=== PATIENT | male | born 1960 | race Caucasian/White ===

== ENCOUNTER 2023-05-29 11:46 | Outpatient (REF) | payer OTHER, SELFPAY ==
--- NOTE | ~2023-05-29 | XR_ITS ---
EXAMINATION: XR SHOULDER, LEFT CLINICAL INFORMATION: Left shoulder pain for 6 months. COMPARISON: None available. TECHNIQUE: AP external rotation, Grashey, scapular Y, and axillary views of the left shoulder. FINDINGS: There is calcific tendinitis of the left shoulder. The glenohumeral joint appears unremarkable. No acute fracture or dislocation is seen. No widening of the coracoclavicular space is seen. There is mild degenerative spurring of the left acromioclavicular joint. XR/XR shoulder LT min 2V IMPRESSION: Calcific tendinitis of the left shoulder.
== END 2023-05-29 11:47 | disposition home or self-care (01) ==
LOC: HO.HHCX 11:46
PROVIDERS: Visit Provider Family Medicine
DX: M25.512 Pain in left shoulder (principal)
CPT/HCPCS: 73030

== ENCOUNTER 2023-05-29 12:16 | Outpatient (REF) | payer OTHER, SELFPAY ==
[2023-05-29 13:33] LABS: MANUAL DIFF FLAG NO
[2023-05-29 13:53] LABS: Basophils Absolute Auto 0.1 X10*3/uL (0.0-0.2); Eosinophils Absolute Auto 0.6 X10*3/uL (0.0-0.4); Eosinophils Percent Auto 5.9 % (0-4); Hematocrit 45.6 % (42.0-52.0); Hemoglobin 14.6 g/dl (14.0-18.0); Imm Gran Abs Auto 0.05 X10*3/uL (0.00-0.03); Imm Gran Pct Auto 0.5 % (0.0-0.4); Lymphocytes Absolute Auto 2.6 X10*3/uL (1.2-4.9); Lymphocytes Percent Auto 24.7 % (20-40); Mean Corpuscular Hemoglobin 29.6 pg (27.0-33.0); Mean Corpuscular Volume 92.5 fL (80.0-98.0); Mean Platelet Volume 11.3 fL (9.4-12.4); Monocytes Absolute Auto 0.7 X10*3/uL (0.1-1.2); Monocytes Percent Auto 6.5 % (2-11); Neutrophils Absolute Auto 6.4 x10*3/uL (2.0-8.3); Neutrophils Percent Auto 61.4 % (45-73); Platelet Count 223 X10*3/uL (160-400); Red Blood Count 4.93 X10*6/uL (4.60-5.80); Red Cell Distribution Width 12.3 % (11.0-16.0); White Blood Count 10.4 X10*3/uL (4.8-10.8)
[2023-05-29 14:33] LABS: Creatinine Urine 28.66 mg/dL; Microalbumin Urine < 5.0 mg/L
[2023-05-29 14:52] LABS: Estimated Average Glucose 140 mg/dL; Hemoglobin A1c % 6.5 %
[2023-05-29 15:03] LABS: Alanine Aminotransferase 15 U/L (0-40); Albumin Level 4.4 g/dL (3.5-5.0); Alkaline Phosphatase 71 U/L (39-117); Anion Gap 16 (12-20); Aspartate Amino Transferase 15 U/L (5-37); Bilirubin Direct 0.2 mg/dL (0.0-0.5); Bilirubin Total 0.5 mg/dL (0.0-1.0); Blood Urea Nitrogen 17 mg/dL (9-16); Calcium 9.9 mg/dL (8.4-10.2); Carbon Dioxide 27 mmol/L (22-29); Chloride 103 mmol/L (96-108); Cholesterol 120 mg/dL; Estimated Glomerular Filt Rate > 60; Free T4 (Free Thyroxine) 0.97 ng/dL (0.71-1.85); Glucose Random 95 mg/dL (60-115); HDL Cholesterol 45 mg/dL; LDL Cholesterol Calculated 58 mg/dl; Potassium 4.8 mmol/L (3.3-5.1); Sodium 141 mmol/L (135-145); Thyroid Stimulating Hormone 1.48 uIU/mL (0.32-4.0); Total Protein 7.3 g/dL (6.5-8.0); Triglycerides 86 mg/dL; Vitamin D 25-OH Total 24.6 ng/mL (>30)
== END 2023-05-29 12:17 | disposition home or self-care (01) ==
LOC: HO.HHCL 12:16
PROVIDERS: Visit Provider Family Medicine
DX: Z00.00 Encounter for general adult medical examination without abnormal findings (principal); E11.3293 Type 2 diabetes mellitus with mild nonproliferative diabetic retinopathy without macular edema, bilateral
CPT/HCPCS: 36415; 80048; 80061; 80076; 82043; 82306; 83036; 84439; 84443; 85025; 86787

== ENCOUNTER 2023-11-13 15:56 | Outpatient (REF) | payer OTHER, SELFPAY ==
--- NOTE | ~2023-11-13 | MR_ITS ---
EXAMINATION: MR BRAIN WITHOUT AND WITH CONTRAST CLINICAL INFORMATION: Bilateral tinnitus. COMPARISON: CT head from 08/27/2007. TECHNIQUE: Multiplanar, multisequence MRI of the brain was obtained using a skull base protocol without and following the administration of 7.5 mL of Gadavist intravenous contrast. FINDINGS: No focal restricted diffusion is demonstrated to suggest acute or subacute cerebral ischemia. No evidence of acute or chronic hemorrhagic products on heme-sensitive imaging. Scattered periventricular and deep white matter T2 FLAIR hyperintensities consistent with mild underlying microangiopathy. Proportional prominence of the ventricles and sulcal spaces without evidence of obstructive hydrocephalus. No abnormal mass effect. No midline shift. Normal appearance of the pituitary gland. Normal positioning of the cerebellar tonsils. No mass of the cerebellopontine angles. Normal appearance of the cranial nerve V, VII, and VIII nerve roots. No edema or vascular loops near the nerve root entry sites. Normal appearance of the internal auditory canals without enhancing mass lesions. No abnormal enhancement along the course of the facial nerves bilaterally. Normal appearance of the labyrinthine structures without loss of T2 signal or abnormal enhancement. Normal arterial and venous vascular flow voids are present. No abnormal intracranial contrast enhancement. Normal, homogeneous marrow signal. Mild mucosal thickening of the paranasal sinuses. No signal abnormalities within the mastoids. MR/MR head/brain wo/w con IMPRESSION: 1. No acute intracranial abnormalities. No abnormal intracranial enhancement. 2. Mild underlying microangiopathy and generalized cerebral volume loss. 3. No additional MRI abnormalities to explain the patient's symptoms.
== END 2023-11-13 15:57 | disposition home or self-care (01) ==
LOC: HO.MRI 15:56
PROVIDERS: PCP Family Medicine; Visit Provider Family Medicine
DX: H93.13 Tinnitus, bilateral (principal)
CPT/HCPCS: 70553; A9585

== ENCOUNTER 2024-07-23 08:07 | Outpatient (REF) | payer OTHER, SELFPAY ==
[2024-07-23 12:06] LABS: Hemoglobin 13.8 g/dl (14.0-18.0); Mean Corpuscular HGB Conc 32.9 g/dl (31.0-36.0); Mean Corpuscular Hemoglobin 30.3 pg (27.0-33.0); Mean Corpuscular Volume 92.1 fL (80.0-98.0); Platelet Count 246 X10*3/uL (160-400); Red Blood Count 4.56 X10*6/uL (4.60-5.80); Red Cell Distribution Width 12.3 % (11.0-16.0); White Blood Count 8.9 X10*3/uL (4.8-10.8)
[2024-07-23 12:09] LABS: Estimated Average Glucose 148 mg/dL; Hemoglobin A1c % 6.8 % (<6.0)
[2024-07-23 12:29] LABS: Alanine Aminotransferase 15 U/L (0-40); Albumin Level 4.3 g/dL (3.5-5.0); Alkaline Phosphatase 68 U/L (39-117); Anion Gap 13 (12-20); Aspartate Amino Transferase 14 U/L (5-37); Bilirubin Direct 0.2 mg/dL (0.0-0.5); Bilirubin Total 0.5 mg/dL (0.0-1.0); Blood Urea Nitrogen 17 mg/dL (9-16); Calcium 9.7 mg/dL (8.4-10.2); Carbon Dioxide 27 mmol/L (22-29); Chloride 104 mmol/L (96-108); Cholesterol 106 mg/dL (<200); Estimated Glomerular Filt Rate > 60; Glucose Random 117 mg/dL (60-115); HDL Cholesterol 44 mg/dL (>40); LDL Cholesterol Calculated 44 mg/dL (<100); Potassium 4.3 mmol/L (3.3-5.1); Sodium 140 mmol/L (135-145); Total Protein 7.1 g/dL (6.5-8.0); Triglycerides 91 mg/dL (<150)
[2024-07-23 12:44] LABS: Creatinine Urine 25.21 mg/dL; Microalbumin Urine < 5.0 mg/L
[2024-07-23 12:48] LABS: Free T4 (Free Thyroxine) 0.99 ng/dL (0.71-1.85); Thyroid Stimulating Hormone 1.38 uIU/mL (0.32-4.0); Vitamin D 25-OH Total 39.5 ng/mL (>30)
== END 2024-07-23 08:08 | disposition home or self-care (01) ==
LOC: HO.HHCL 08:07
PROVIDERS: Visit Provider Family Medicine
DX: I10 Essential (primary) hypertension (principal); E11.3293 Type 2 diabetes mellitus with mild nonproliferative diabetic retinopathy without macular edema, bilateral; E78.49 Other hyperlipidemia
CPT/HCPCS: 36415; 80048; 80061; 80076; 82043; 82306; 82570; 83036; 84439; 84443; 85027

== ENCOUNTER 2025-02-23 11:17 | Outpatient (REF) | payer OTHER, SELFPAY ==
--- NOTE | ~2025-02-23 | XR_ITS ---
EXAMINATION: XR TIBIA FIBULA 2 VIEWS LEFT HISTORY: mid andrew pain COMPARISON: Correlation is made with plain films of the left knee dated 05/21/2017. FINDINGS: AP and lateral views of the left tibia and fibula are submitted. Osseous mineralization is normal. There is no acute fracture or dislocation. There is an old healed fracture deformity of the distal femur. There is moderate tricompartmental osteoarthritis of the knee. The visualized ankle joint is maintained. The soft tissues are unremarkable. XR/XR tibia fibula LT 2V IMPRESSION: No evidence of fracture of the left tibia or fibula. Electronically signed by: Rene Gaines MD 02/23/2025 11:34 AM EDT
--- OUTSIDE RECORDS SUMMARY | 2025-02-23 13:38 | XMS_ITS | Encounter Summary ---
Author Organization [facility] Address [address] [place] [address] Care Team Providers Care Process Laboratory Specialist Name Role Phone JorgeMariya Primary Care Provider + [phone] Encounter Details Date Type Department Care Team (Late Contact Info) Description 02/26/2023 Abstract [facility] [address] [place] [address] Sy Avila DMD [address] [place] [address] Social History Tobacco Use Types Packs/Day Years Used Date Smoking Tobacco: Never Passive Smoke Exposure: Never Smokeless Tobacco: Never Alcohol Use Standard Drinks/Week Comments Never 0 (1 standard drink = 0.6 oz pur e alcohol) Depression Answer Date Recorded Patient Health Questionnaire-9 Score 0 01/29/2023 Depression Answer Date Recorded Patient Health Questionnaire-2 Score 0 01/29/2023 Sex and Gender Information Value Date Recorded Sex Assigned at Male 09/09/2022 10:18 AM EDT Legal Sex Male 10:18 AM EDT Gender Identity Male 09/09/2022 10:18 AM EDT Sexual Orientation Straight 09/09/2022 10 :18 AM EDT COVID-19 Exposure Response Date Recorded In the last 10 days, have yo u been in contact with someone who was confirmed or suspected to have Coronavirus/COVID-19? No / Unsure 02/13/2023 12:46 PM EDT documented as of this encounter Plan of Treatment Upcoming Encounters Date Type Department Care Team ([facility] Contact Info) Description 02/25/2025 1:00 PM EDT Office Visit [facility] [address] [place] [address] Cherelle Marrero, OD [address] [place] [address] documented as of this encounter Visit Diagnoses Not on filedocumented in this encounter Additional Health Concerns Assessment Noted Time PHQ-9 Depression Total Score: 0 01/30/20 23 9:09 AM EDT documented as of this encounter Care Teams Process Laboratory Specialist Relationship Specialty Start Date End Date Mariya Patel DO [address] [place] [address] PCP - General Family Medicine 04/21/20 documented as of this encounter
--- OUTSIDE RECORDS SUMMARY | 2025-02-23 13:38 | XMS_ITS | Encounter Summary ---
Author Organization [email or web address] Address [address] [facility] [address] [place] [address] Care Team Providers Care Process Laboratory Specialist Name Role Phone JorgeMariya Primary Care Provider + [phone] Encounter Details Date Type Department Care Team (Late Contact Info) Description 02/26/2023 Abstract [facility] [address] [place] [address] Sy Avila DMD [address] [place] [address] Social History Tobacco Use Types Packs/Day Years [...] Upcoming Encounters Date Type Department Care Team ([facility] Contact Info) Description 02/25/2025 1:00 PM EDT Office Visit [facility] [address] [place] [address] Cherelle Marrero, OD [address] [place] [address] documented as of this encounter Visit Diagnoses Not on filedocumented in this encounter Additional Health Concerns Assessment Noted Time PHQ-9 Depression Total Score: 0 01/30/20 23 9:09 AM EDT documented as of this encounter Care Teams Process Laboratory Specialist Relationship Specialty Start Date End Date Mariya Patel DO [address] [place] [address] PCP - General Family Medicine 04/21/20 documented as of this encounter
--- OUTSIDE RECORDS SUMMARY | 2025-02-23 13:38 | XMS_ITS | Encounter Summary ---
Author Organization [facility] Address [address] [facility] [address] [place] [address] Care Team Providers Care Rescue Worker Name Role Phone ChevyMariya spicer Primary Care Provider [phone] Encounter Details Date Type Department Care Team (Late st Contact Info) Description 12/27/[address] [facility] [address] [place] [address] Chepe De La Fuente DDS [address] [place] [address] Social History Tobacco Use Types Packs/Day Years Used Date Smoking Tobacco: Never Smokeless Tobacco: Never Sex and Gender Information Value Date Recorded [...] suspected to have Coronavirus/COVID-19? No / Unsure 12/24/2022 10:18 AM EST documented as of this encounter Plan of Treatment Upcoming Encounters Date Type Department Care Team (Late st Contact Info) Description 02/25/2025 1:00 PM EDT Office Visit [facility] [address] [place] [address] Cherelle Marrero, OD [address] [place] [address] documented as of this encounter Visit Diagnoses Not on filedocumented in this encounter Care Teams Rescue Worker Relationship Specialty Start Date End Date Mariya Patel DO [address] [place] [id number] PCP - General Family Medicine 04/21/20 documented as of this encounter
--- OUTSIDE RECORDS SUMMARY | 2025-02-23 13:38 | XMS_ITS | Clinical Summary ---
Author Organization [employer] Address [address] [facility] [address] [place] [address] Care Team Providers Care Printed Circuit Board Assembly Repairer Name Role Phone ChevyMariya spicer Primary Care Provider + [phone] Allergies No known active allergies Medications cholecalciferol (Vitamin D-3) 50 MCG (1999 UT) capsule Take 1 tablet by mouth at bed time. 021 Active miconazole (Micotin) 2 % cream apply by topical route 2 times every day between the toes of both feet 021 Active zoster vaccine-recombina nt adjuvanted (Shingrix) 50 MCG/0.5ML vaccine Inject 0.5 mL into the shoulder, thigh, or buttocks. 021 Active FreeStyle lancets TEST BLOOD SUGAR 4 TIMES DAILY DIRECTED 023 Active Blood Glucose Monitoring Suppl (Accu-Chek Jil Plus) w/Device kit USE TO TEST BLOOD SUGAR 3 TIMES A DAY 1 kit 023 Active Blood Glucose Monitoring Suppl (OneTouch Verio) w/Device kit 1 each 4 times daily. TEST BLOOD SUGAR 4 TIMES A DAY 1 kit 024 Active Lancets (OneTouch Delica Plus [id number]) misc 1 each 4 times daily. TEST BLOOD SUGAR 4 TIMES A DAY 100 each 11 024 Active Farxiga 10 MG TAKE 1 TABLET BY MOUTH EVERY DAY IN THE MORNING 90 tablet 3 024 Active Diclofenac Sodium 1 % gel APPLY 2 G TOPICALLY IF NEEDED IN THE MORNING, AT NOON, IN THE EVENING, AND AT BEDTIME (PAIN). 100 g 3 024 Active polyethylene glycol, PEG, 3350 (GaviLAX) 17 GM/SCOOP powderIndications :Constipation, unspecified constipation type TAKE 17G EVERY DAY MIXED WITH 8 OZ. WATER, JUICE, SODA, COFFEE OR TEA NEEDED FOR CONSTIPATION 238 g 3 024 Active Ketotifen Fumarate 0.035 % solution PLACE 1 DROP IN BOTH EYES TWICE DAILY FOR ITCHING Active sildenafil (Viagra) 50 MG tabletIndications :Male erectile dysfunction, unspecified TAKE 1 TABLET 1 HOUR BEFORE SEXUAL RELATIONS ONCE DAILY NEEDED. 15 tablet 1 024 Active baclofen (Lioresal) 10 MG tablet TAKE 0.5-1 TABLETS BY MOUTH IF NEEDED IN THE MORNING, AT NOON, AND AT BEDTIME FOR MUSCLE SPASMS. 60 tablet 1 024 Active metFORMIN (Glucophage) 500 MG tablet TAKE 2 TABLETS BY ORAL ROUTE IN THE MORNING AND 2 TABLETS BY MOUTH AT BEDTIME 360 tablet 3 024 Active acetaminophen (Tylenol 8 Hour) 650 MG ER tablet TAKE 1 TABLET BY MOUTH EVERY 8 (EIGHT) HOURS IF NEEDED FOR MILD PAIN. DO NOT CRUSH, CHEW, OR SPLIT. 40 tablet 2 024 Active atorvastatin (Lipitor) 40 MG tabletIndications :Hyperlipidemia, unspecified hyperlipidemia type TAKE 1 TABLET BY MOUTH EVERYDAY AT BEDTIME 90 tablet 3 024 Active lisinopril 10 MG tabletIndications :Essential hypertension TAKE 1 TABLET BY MOUTH EVERY DAY 90 tablet 3 025 Active Aspirin Low Dose 81 MG EC tabletIndications :Type 2 diabetes mellitus with other specified complication, unspecified whether manager intermediate insulin use ([facility]) TAKE 1 TABLET BY MOUTH EVERY DAY 90 tablet 3 025 Active Alcohol Swabs (CVS Prep) 70 % pads USE 1 PAD TO SKIN ROUTE EVERY DAY 100 each 5 025 Active glucose blood (OneTouch Verio) test strip USE TO TEST BLOOD SUGAR 4 TIMES A DAY 100 strip 12 025 Active Alcohol Swabs (B-D SINGLE USE SWABS REGULAR) pads USE 1 PAD TO SKIN ROUTE EVERY DAY 100 each 5 023 2024 Discontinued glucose blood (OneTouch Verio) test strip TEST BLOOD SUGAR 4 TIMES A DAY 100 each 12 024 2024 Discontinued Active Problems Problem Noted Date Diagnosed Date Tinnitus of both ears 02/23/2025 Healthcare maintenance 03/22/2024 Assessment & Plan (03/22/2024 5:27 PM EDT): -s/p flu vaccine SEP 2023 -s/p COVID vaccine SEP 2023 -encouraged RSV vaccine -s/p Tdap MAY 2017 -s/p pneumovax MAY 2018 -s/p PCV20 MAY 2023 -s/p Shingrix vaccine NOV 2023 -s/p Hep B vaccine JUN 2021 -colonoscopy with diverticulosis and hyperplastic polyps JUL 2018 -STI/HIV negative NOV 2020 -no h/o tobacco use Periodontal disease 06/24/2023 Dental calculus 06/24/2023 Degenerative disc disease, lumbar 01/28/2023 Degenerative disc disease, thoracic 01/28/2023 Diabetic retinopathy 01/28/2023 Diverticulosis 01/28/2023 Erectile dysfunction 01/28/2023 Essential hypertension 01/28/2023 Assessment & Plan (03/22/2024 5:26 PM EDT): BP controlled -cont lisinopril daily -Cr/GFR and urine microalbumin nml MAY 2023->repeat prior to next visit -there is nml EKG in chart -optho as above Hyperlipidemia 01/28/2023 Assessment & Plan (03/22/2024 5:26 PM EDT): LDL at goal MAY 2023 -cont lipitor nightly -repeat lipids prior to next visit Hyperplastic colon polyp 01/28/2023 Chronic pain of left knee 01/28/2023 Osteoarthritis 01/28/2023 Type 2 diabetes mellitus 01/28/2023 Assessment & Plan (03/22/2024 5:25 PM EDT): A1c at-goal -cont metformin BID -cont farxiga daily -cont regular blood sugar monitoring -cont aspirin, lipitor, and lisinopril daily -s/p optho eval FEB 2024 at [facility] for 6 mos f/u -foot exam with nml monofilament JUL 2022, repeat next visit BMI 28.0-28.9,adult 12/10/2017 Encounters Date Type Department Care Team Description 02/23/2025 10:00 AM EDT Office Visit [facility] [address] [facility] [place] [address] Mariya Patel DO 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, without long-term current use of insulin, macular edema presence unspecified (CMS/[facility]) (Primary Dx); Essential hypertension; Other hyperlipidemia; Tinnitus of both ears; Healthcare maintenance; Pain in left andrew 02/23/2025 Travel 02/14/2025 Patient Outreach [facility] [address] [place] [address] Mariya Patel DO Pre-visit Planning (SDOH screening negative and tobacco screening negative) 02/12/2025 Refill [facility] [address] [place] [address] Mariya Patel DO 12/29/2024 Telephone [facility] [place] [address] Mariya Patel DO Recall Appt. 12/29/2024 Travel 12/01/2024 Refill [facility] [address] [place] [address] Mariya Patel DO Essential hypertension; Type 2 diabetes mellitus with other specified complication, unspecified whether manager intermediate insulin use ([facility]) from Last 3 Months Immunizations Name Administration Dates Next Due Hep B, adult 06/11/2021,10/10/2017,09/09/2017 Influenza Injectable Quadriv alant Preservative Free IIV4 MDCK 10/12/2021 Influenza injectable quadriv alent preservative free 10/07/2023,07/29/2022,10/27/2018,09/09 Influenza, seasonal, injecta ble, preservative free 08/13/2024 Moderna Covid-19 Vaccine 6+ Bivalent 01/29/2023 Pfizer Covid-19 Vaccine 12+ 08/13/2024, Pneumococcal Conjugate PCV 20 05/29/2023 Pneumococcal Polysaccharide PPSV23 05/20/2017 RSV Bivalent 03/24/2024 Tdap 05/20/2017 Zoster, Recombinant 12/09/2023,10/07/2023 Family History Medical History Relation Name Comments Alcohol abuse Father Alzheimer's disease Mother's Sister Relation Name Status Comments Father Mother's Sister Social History Tobacco Use Types Packs/Day Years Used Date Smoking Tobacco: Never Passive Smoke Exposure: Never Smokeless Tobacco: Never Tobacco Cessation:Counseling Given: Not Answered Alcohol Use Standard Drinks/Week Comments Never 0 (1 standard drink = 0.6 oz pur e alcohol) Depression Answer Date Recorded Patient Health Questionnaire-9 Score 0 02/23/2025 Patient Health Questionnaire-9 Score 0 02/23/2025 Last PHQ-9: Questionnaire Data Not on file 0 02/23/2025 Housing Stability Answer Date Recorded What is your housing situation today? I have nicholas leiva 07/27/[address] you li ve. Do you have problems with any of the following? None of the above 07/27/2024 Food Insecurity Answer Date Recorded Within the past 12 months, y ou worried that your food would run out before you got money to buy more: Never True 07/27/2024 Within the past 12 months,th e food you bought just didn't last and you didn't have enough money to get more: Never True Transportation Answer Date Recorded In the past 12 months, has l ack of transportation kept you from medical appts, meetings, work or from getting things needed for daily living? No 07/27/2024 Utilities Answer Date Recorded In the past 12 months, has t he electric, gas, oil or water company threatened to shut off services in your home? No 02/14/2025 Depression Answer Date Recorded Patient Health Questionnaire-2 Score 0 02/23/2025 Internet Access Answer Date Recorded Internet Access Q1 Yes 07/27/2024 Internet Access Q2 Not on file 07/27/2024 Sex and Gender Information Value Date Recorded Sex Assigned at Male 09/09/2022 10:18 AM EDT Legal Sex Male 10:18 AM EDT Gender Identity Male 09/09/2022 10:18 AM EDT Sexual Orientation Straight 09/09/2022 10 :18 AM EDT Last Filed Vital Signs Vital Sign Reading Time Taken Comments Blood Pressure 136/70 02/23/2025 10:01 AM EDT Pulse 60 02/23/2025 10:01 AM EDT Temperature 36.2 ??C (97.1 ??F) 02/23/2025 10:01 AM E DT Respiratory Rate 19 02/23/2025 10:01 AM EDT Oxygen Saturation 98% 02/23/2025 10:01 AM EDT Inhaled Oxygen Concentration - - Weight 74.8 kg (165 lb) 02/23/2025 10:01 AM EDT Height 162.6 cm (5' 4 ) 02/23/2025 10:01 AM EDT Body Mass Index 28.32 02/23/2025 10:01 AM EDT Plan of Treatment Upcoming Encounters Date Type Department Care Team (Late st Contact Info) Description 02/25/2025 1:00 PM EDT Office Visit [facility] [address] [place], [place] [phone] Janes, Cherelle, OD [address] [place] [address] Health Maintenance Due Date Last Done Comments CT Colonography 1960 FIT DNA/Cologuard 1960 FIT 1960 FOBT 1960 Sigmoidoscopy 1960 Diabetes: Foot Exam 1970 Alcohol/Substance Use Screening 1972 Dental Oral Exam 06/17/2023 12/17/2022 Dental Prophylaxis 06/24/2023 12/24/2022 Dental X-Ray: Bitewings 12/18/2023 12/17/2022 Eye Exam 02/19/2025 02/20/2024, 02/08, 02/20/2024, Additional history exists Diabetes: Hemoglobin A1C 05/25/2025 025, 07/23/2024, 03/22/2024, Additional history exists Diabetes: Urine Protein Screening 07/23/2025 07/23/2024, 05/29/2023, 07/30/2022, Additional history exists Lipid Panel 07/23/2025 07/23/2024, 05/11, 07/30/2022, Additional history exists Dental X-Ray: Full Mouth 12/18/2025 12/17/2022 Depression Screening 02/23/2026 02/23/2025, 02/24/20 SDOH Screening 02/23/2026 02/23/2025 Tobacco Screening 02/23/2026 02/23/2025 DTaP/Tdap/Td Vaccines (2 - Td or Tdap) 05/20/2027 05/20/2017 Colonoscopy 08/04/2028 08/04/2018 Colorectal Cancer Screening 08/04/2028 HIV Screening Completed 11/30/2020 Hepatitis C Screening Completed 11/30/2020 Hepatitis B Vaccines Completed 06/11/2021, 10/10/2017, 09/09/2017 Pneumococcal Vaccine: 50+ Years Completed 05/29/2023, 05/20/2017 Zoster Vaccines Completed 12/09/2023, 10/07/2023 RSV Patients and Patients Aged 60 years or older Completed 03/24/2024 COVID-19 Vaccine Completed 08/13/2024, , 01/29/2023, Additional history exists Influenza Vaccine Completed 08/13/2024, , 07/29/2022, Additional history exists HIB Vaccines Aged Out No longer eligi ble based on patient's age to complete this topic HPV Vaccines Aged Out No longer eligi ble based on patient's age to complete this topic Hepatitis A Vaccines Aged Out No long er eligible based on patient's age to complete this topic IPV Vaccines Aged Out No longer eligi ble based on patient's age to complete this topic Meningococcal Vaccine Aged Out No gautam randee eligible based on patient's age to complete this topic RSV under 20 months Aged Out No longe r eligible based on patient's age to complete this topic Rotavirus Vaccines Aged Out No longer eligible based on patient's age to complete this topic Procedures Procedure Name Priority Date/Time Associated Diagnosis Comments XR TIBIA FIBULA 2 VIEWS LEFT Routine 02/23/2025 11:17 AM EDT Pain in left andrew POCT GLYCATED HEMOGLOBIN, TOTAL Routine 02/23/2025 10:05 AM EDT 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, without long-term current use of insulin, macular edema presence unspecified ([facility]/HCC) POCT GLUCOSE Routine 02/23/2025 10:05 AM EDT 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, without long-term current use of insulin, macular edema presence unspecified (CMS/HCC) ALBUMIN, RANDOM URINE W/CREATININE Routine 07/23/2024 8:09 AM EDT 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, without long-term current use of insulin, macular edema presence unspecified (CMS/HCC) Essential hypertension Other hyperlipidemia LIPID PANEL, STANDARD Routine 07/23/2024 8:09 AM EDT 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, without long-term current use of insulin, macular edema presence unspecified (CMS/HCC) Essential hypertension Other hyperlipidemia PROPHYLAXIS - ADULT Routine 12/24/2022 1 0:30 AM EST Periodontal disease INTRAORAL - COMPLETE SERIES OF RADIOGRAPHIC IMAGES Routine 12/17/2022 8:00 AM EST Dental caries Periodontal disease COMPREHENSIVE ORAL EVALUATION - NEW OR ESTABLISHED PATIENT Routine 12/17/2022 8:00 AM EST Dental caries Periodontal disease ZZZ HISTORICAL HEPATITIS C AB W/REFL TO HCV RNA, QN, PCR Routine 11/30/2020 8:47 AM EST HIV 1/2 ANTIGEN/ANTIBODY, FOURTH GENERATION W/RFL Routine 11/30/2020 8:47 AM EST HM COLONOSCOPY Routine 08/04/2018 from Last 3 Months or Most Recently Relevant to Health Maintenance Results * XR Tibia Fibula 2 Views Left (02/23/2025 11:17 AM EDT) Anatomical Region Laterality Modality Lower Extremities, Lower Leg Left Rad iographic Imaging 02/23/2025 11:1 7 AM EDT Narrative 02/23/2025 11:38 AM EDT ?[facility] ?[address] ?[place] [address] ?XRay Report ? Signed ? Patient: Arik,Toi ?MR#: [id number] ?? [id number] ? : 1960 ?Acct:[id number] ? Age/Sex: 64 / M ?ADM Date: 04/16/25 ? Loc: HO.HHCX ? Attending Dr: Mariya Patel DO ? Ordering Physician: Mariya Patel DO ?? Date of Service: 02/23/25 ?? Procedure(s): XR tibia fibula LT 2V ?? Accession Number(s): [id number] ? cc: Mariya Patel DO ? EXAMINATION: ??XR TIBIA FIBULA 2 VIEWS LEFT ? HISTORY: mid andrew pain ? COMPARISON: Correlation is made with plain films of the left knee dated ?? 05/21/2017. ? FINDINGS: ? AP and lateral views of the left tibia and fibula are submitted. ? Osseous mineralization is normal. ??There is no acute fracture or ?? dislocation. There is an old healed fracture deformity of the distal ?? femur. ??There is moderate tricompartmental osteoarthritis of the knee. ?? The visualized ankle joint is maintained. ??The soft tissues are ?? unremarkable. ? XR/XR tibia fibula LT 2V ?? IMPRESSION: ? No evidence of fracture of the left tibia or fibula. ? Electronically signed by: ??Rene Gaines MD ??02/23/2025 11:34 AM EDT ? Dictated By: ?Rene Gaines MD ? Signed By: ?<Electronically signed by Rene Gaines MD in OV> ?02/23/25 1134 ? DD/ 1117 ? TD/TT: 02/23/25 1126 ? 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 Procedure Note Suma Aviles - 02/23/[address] [address] XRay Report Signed Patient: Toi EliseMR#: [id number] : 1960Acct:[id number] Age/Sex: 64 / MADM Date: 02/23/25 Loc: HO.HHCX Attending Dr: Mariya Patel DO Ordering Physician: Mariya Patel DO Date of Service: 02/23/25 Procedure(s): XR tibia fibula LT 2V Accession Number(s): [id number] cc: Mariya Patel DO EXAMINATION: XR TIBIA FIBULA 2 VIEWS LEFT HISTORY: mid andrew pain COMPARISON: Correlation is made with plain films of the left knee dated 05/21/2017. FINDINGS: AP and lateral views of the left tibia and fibula are submitted. Osseous mineralization is normal. There is no acute fracture or dislocation. There is an old healed fracture deformity of the distal femur. There is moderate tricompartmental osteoarthritis of the knee. The visualized ankle joint is maintained. The soft tissues are unremarkable. XR/XR tibia fibula LT 2V IMPRESSION: No evidence of fracture of the left tibia or fibula. Electronically signed by: Rene Gaines MD 02/23/2025 11:34 AM EDT Dictated By: Rene Gaines MD Signed By: <Electronically signed by Rene Gaines MD in OV> 02/23/25 1134 DD/ 1117 TD/TT: 02/23/25 1126 [employer] Office: Mariya Patel DO IMG XR PROCEDURES Final Resu lt * (ABNORMAL) POCT HGB A1C (02/23/2025 10:05 AM EDT) Hemoglobin A1C 7.1(A) 4.0 - 6.0 % QC Media Lot # [id number] Lot# Expiration Date , Blood 02/23/2025 10:0 5 AM EDT Mariya Patel DO POINT OF CARE TEST ENTER/INDIGO T ORDERABLES Final Result * POCT Glucose (02/23/2025 10:05 AM EDT) Glucose Blood, POC 183 60 - 200 mg/dL QC Media Lot # [id number] Lot# Expiration Date ,025 Blood Capillary blood specimen / Unknown 02/23/2025 10:05 AM EDT Mariya Patel DO POINT OF CARE TEST ENTER/INDIGO T ORDERABLES Final Result * Albumin, Random Urine W/Creatinine (07/23/2024 8:09 AM EDT) Creatinine, Urine 25.21 mg/dL [facility] Microalbumin Urine <5.0 mg/L [facility] Microalbum Creatinine Ratio Ur TNP <30 ug/mg cr [facility] Comment:Unable to calculate albumin/creatinine ratio due to lowmicroalbumin or creatinine result. Urine (Urine, Random) 07/23/2024 8:09 AM EDT 07/23/2024 11:35 AM EDT us Mariya Patel DO LAB URINE ORDERABLES Final R esult [facility] [address] [place] [phone] * Lipid Panel, Standard (07/23/2024 8:09 AM EDT) Triglycerides 91 <150 mg/dL [facility] Comment:Desirable Triglyceri de: less than 150 mg/dLBorderline High Triglyceride 150-199 mg/dLHigh Triglyceride: 200-499 mg/dLVery High Triglyceride: greater than or equal to 5OO mg/dL Cholesterol 106 <200 mg/dL [facility] Comment:Desirable Cholestero l: less than 200 mg/dLBorderline High Cholesterol: 200-239 mg/dLHigh Cholesterol: greater than 239 mg/dL LDL Cholesterol Calculated 44 <100 mg/dL [facility] Comment:Desirable LDL: less than 100 mg/dLNear Optimal/Above Optimal LDL: 110- 129 mg/dLBorderline High LDL: 130-159 mg/dLHigh LDL: 160-189 mg/dLVery High LDL: greater than or equal to 190 mg/dL HDL Cholesterol 44 >40 mg/dL [facility] Comment:Desirable HDL: great er than 40 mg/dL Note: This HDL assay may give artificially low results in patients with liver disease. Blood Venous blood specimen / Unknown 07/23/2024 8:09 AM EDT 07/23/2024 11:48 AM EDT Mariya Jimenezlizette DO LAB BLOOD ORDERABLES Final R esult Performing Organization Address City/[facility]/ZIP Co de Phone Number [facility] [address] [place] [phone] * HEPATITIS C AB W/REFL TO HCV RNA, QN, PCR (11/30/2020 8:47 AM EST) HEPATITIS C ANTIBODY NON-REACT LAMIN NON-REACT LAMIN [facility] INDEX 0.03 <1.00 [facility] Comment: ?? HCV antibody was non-reactive. There is no laboratory ?? evidence of HCV infection. ?? In most cases, no further action is required. However, if recent HCV exposure is suspected, a test for HCV RNA (test code 76812) is suggested. ?? For additional information please refer to http://education.PonoMusic/faq/PTP42e2 (This link is being provided for informational/ educational purposes only.) ?? 11/30/2020 8:47 AM EST Mariya Jorge DO HISTORICAL/NON ORDERABLE LAB S Final Result Performing Organization Address [facility] de Phone Number [facility] [address] * HIV 1/2 ANTIGEN/ANTIBODY,FOURTH GENERATION W/RFL (11/30/2020 8:47 AM EST) Pathologist [facility] HIV-1/2 ANTIGEN AND ANTIBODIES, 4TH GENERATION W/ REFLEX NON-REACT LAMIN NON-REACT LAMIN [facility] Comment: HIV-1 antigen and HIV-1/HIV-2 antibodies were not detected. There is no laboratory evidence of HIV infection. ?? PLEASE NOTE: This information has been disclosed to you from records whose confidentiality may be protected by state law. ??If your state requires such protection, then the state law prohibits you from making any further disclosure of the information without the specific written consent of the person to whom it pertains, or as otherwise permitted by law. A general authorization for the release of medical or other information is NOT sufficient for this purpose. ? For additional information please refer to http://education.[employer]/faq/JBN395 (This link is being provided for informational/ educational purposes only.) ? The performance of this assay has not been clinically validated in patients less than 2 years old. ?? 11/30/2020 8:47 AM EST Mariya Patel DO LAB BLOOD ORDERABLES Final R esult [facility] [address] * Colonoscopy (08/04/2018) Pathologist [facility] Colonoscopy Normal Normal Comment:Repeat in 10 years Historical Provider MD HEALTH MAINTENANCE Final Result from Last 3 Months or Most Recently Relevant to Health Maintenance Insurance [facility] < 65 DENTAL - [facility] Care Teams Printed Circuit Board Assembly Repairer Relationship Specialty Start Date End Date Mariya Patel DO [address] [place] [address] PCP - General Family Medicine 04/21/20
--- OUTSIDE RECORDS SUMMARY | 2025-02-23 13:39 | XMS_ITS | Encounter Summary ---
Author Organization [employer] Address [address] [place] [address] Care Team Providers Care Resource Development Director Name Role Phone TonyMariya bauer Primary Care Provider + [phone] Encounter Details Date Type Department Care Team (Latest Contact Info) Description 02/23/2025 Travel Social History Tobacco Use Types Packs/Day Years [...] Orientation Straight 09/09/2022 10 :18 AM EDT documented as of this encounter Plan of Treatment Upcoming Encounters Date Type Department Care Team (Late st Contact Info) Description 02/25/2025 1:00 PM EDT Office Visit [facility]OMET[facility] [address] [place], [place] [phone] Cherelle Marrero, OD [address] [place] [address] documented as of this encounter Visit Diagnoses Not on filedocumented in this encounter Additional Health Concerns Assessment Noted Time PHQ-9 Depression Total Score: 0 02/24/20 25 11:57 AM EDT documented as of this encounter Care Teams Resource Development Director Relationship Specialty Start Date End Date Mariya Patel DO [address] [place], [place] [phone] PCP - General Family Medicine 04/21/20 documented as of this encounter
--- OUTSIDE RECORDS SUMMARY | 2025-02-23 13:39 | XMS_ITS | Encounter Summary ---
Author Organization [employer] Address [address] [facility] [address]t [place] [address] Care Team Providers Care Warehouse Insulation Worker Name Role Phone Jorge Mariya Primary Care Provider [phone] Reason for Visit * Reason Onset Date Comments Appointment 07/31/2023 Toi rooney 1960 Patient stated he was seen on 07/29/2023 for SRP and also stated doctor came into room and stated he needed an antibiotic for a cyst but prescription has not been sent to pharmacy please advise Encounter Details Date Type Department Care Team (Late st Contact Info) Description 07/31/2023 Telephone [facility] D[facility]AL [address] [place] [address] Sy Avila, DMD [address] [place] [address] Appointment (Toi Arik 1960 Patient stated he was seen on 07/29/2023 for SRP and also stated doctor came into room and stated he needed an antibiotic for a cyst but prescription has not been sent to pharmacy please advise ) Social History Tobacco Use Types Packs/Day Years [...] AM EDT documented as of this encounter Miscellaneous Notes * Telephone Encounter - Savannah Diego - 07/31/2023 10:51 AM EDT Okay thank you * Telephone Encounter - Savannah Cortez - 07/31/2023 9:07 AM EDT Toi Elise 1960 Patient stated he was seen on 07/29/2023 for SRP and also stated doctor came into room and stated he needed an antibiotic for a cyst but prescription has not been sent to pharmacy please advise documented in this encounter Plan of Treatment Upcoming Encounters Date Type Department Care Team (Late st Contact Info) Description 02/25/2025 1:00 PM EDT Office Visit [facility] OPTOMETRY [address] [place] [address] Janes, Cherelle, OD [address] [place] [address] documented as of this encounter Visit Diagnoses Not on filedocumented in this encounter Additional Health Concerns Assessment Noted Time PHQ-9 Depression Total Score: 0 01/30/20 23 9:09 AM EDT documented as of this encounter Care Teams Warehouse Insulation Worker Relationship Specialty Start Date End Date Mariya Patel DO [address] [place] [address] PCP - General Family Medicine 04/21/20 documented as of this encounter
--- OUTSIDE RECORDS SUMMARY | 2025-02-23 13:39 | XMS_ITS | Encounter Summary ---
Author Organization [employer] Address [address] [facility] 7t [place] [address] Care Team Providers Care Pie Topper Name Role Phone Mariya Patel DO Primary Care Provider + [phone] Reason for Visit * Reason Onset Date Comments Med Refill 12/11/2023 Encounter Details Date Type Department Care Team (Late st Contact Info) Description 12/11/2023 Refill [facility] MEDICINE [address] [place] [address] Mariya Patel DO [address] [place] [address] Social History Tobacco Use Types Packs/Day Years Used Date Smoking Tobacco: Never Passive Smoke Exposure: Never Smokeless Tobacco: Never Alcohol Use Standard Drinks/Week Comments Never 0 (1 standard drink = 0.6 oz pur e alcohol) Depression Answer Date Recorded Patient Health Questionnaire-9 Score 0 01/29/2023 Housing Stability Answer Date Recorded What is your housing situation today? I have nicholas leiva 08/25/[address] you li ve. Do you have problems with any of the following? None of the above 08/25/2023 Food Insecurity Answer Date Recorded Within the past 12 months, y ou worried that your food would run out before you got money to buy more: Never True 08/25/2023 Within the past 12 months,th e food you bought just didn't last and you didn't have enough money to get more: Never True Transportation Answer Date Recorded In the past 12 months, has l ack of transportation kept you from medical appts, meetings, work or from getting things needed for daily living? No 08/25/2023 Utilities Answer Date Recorded In the past 12 months, has t he electric, gas, oil or water company threatened to shut off services in your home? No 08/25/2023 Depression Answer Date Recorded Patient Health Questionnaire-2 [...] Description 02/25/2025 1:00 PM EDT Office Visit [facility] OPTOMETRY [address] [place] [address] Janes, Cherelle, OD [address] [place], [place] [phone] documented as of this encounter Visit Diagnoses Not on filedocumented in this encounter Additional Health Concerns Assessment Noted Time PHQ-9 Depression Total Score: 0 01/30/20 23 9:09 AM EDT documented as of this encounter Care Teams Pie Topper Relationship Specialty Start Date End Date Mariya Patel DO [address] [place], [place] [phone] PCP - General Family Medicine 04/21/20 documented as of this encounter
--- OUTSIDE RECORDS SUMMARY | 2025-02-23 13:39 | XMS_ITS | Encounter Summary ---
Author Organization [employer] Address [address] [facility] [address] [place] [address] Care Team Providers Care Film Coater Name Role Phone Mariya Patel DO Primary Care Provider + [phone] Reason for Visit * Reason Onset Date Comments Med Refill 12/11/2023 Encounter Details Date Type Department Care Team (Late st Contact Info) Description 12/11/2023 Refill [facility] MED & PEDS [address] [place] [address] Mariya Patel DO [address] [place] [address] Social History Tobacco Use Types Packs/Day Years [...] Description 02/25/2025 1:00 PM EDT Office Visit [facility] [address] [place] [address] Janes, Cherelle, OD [address] [place], [place] [phone] documented as of this encounter Visit Diagnoses Not on filedocumented in this encounter Additional Health Concerns Assessment Noted Time PHQ-9 Depression Total Score: 0 01/30/20 23 9:09 AM EDT documented as of this encounter Care Teams Film Coater Relationship Specialty Start Date End Date Mariya Patel DO [address] [place], [place] [phone] PCP - General Family Medicine 04/21/20 documented as of this encounter
--- OUTSIDE RECORDS SUMMARY | 2025-02-23 13:39 | XMS_ITS | Encounter Summary ---
Author Organization [employer] Address [address] [facility] 7t [place] [address] Care Team Providers Care Door To Door Selling Agent Name Role Phone Mariya Patel DO Primary Care Provider + [phone] Reason for Visit * Reason Onset Date Comments Med Refill 12/30/2023 Encounter Details Date Type Department Care Team (Late st Contact Info) Description 12/30/2023 Refill [facility] MED & PEDS [address] [place] [address] Mariya Patel DO [address] [place] [address] Social History Tobacco Use Types Packs/Day Years [...] Description 02/25/2025 1:00 PM EDT Office Visit [facility] OPT[facility] [address] [place] [address] Janes, Cherelle, OD [address] [place], [place] [phone] documented as of this encounter Visit Diagnoses Not on filedocumented in this encounter Additional Health Concerns Assessment Noted Time PHQ-9 Depression Total Score: 0 01/30/20 23 9:09 AM EDT documented as of this encounter Care Teams Door To Door Selling Agent Relationship Specialty Start Date End Date Mariya Patel DO [address] [place], [place] [phone] PCP - General Family Medicine 04/21/20 documented as of this encounter
--- OUTSIDE RECORDS SUMMARY | 2025-02-23 13:39 | XMS_ITS | Encounter Summary ---
Author Organization [employer] Address [address] [facility] 7t [place] [address] Care Team Providers Care Coating Mixer Name Role Phone Mariya Patel DO Primary Care Provider [phone] Encounter Details Date Type Department Care Team (Late Contact Info) Description 12/02/2022 Orders Only [facility] MED & PEDS [address] [place], [place] [phone] Mariya Cook LPN Social History Tobacco Use Types Packs/Day Years Used Date Smoking Tobacco: Never Assessed Sex and Gender Information Value Date Recorded [...] suspected to have Coronavirus/COVID-19? No / Unsure 12/03/2022 12:51 PM EST documented as of this encounter Plan of Treatment Upcoming Encounters Date Type Department Care Team (Late Contact Info) Description 02/25/2025 1:00 PM EDT Office Visit [facility] OPTOMETRY [address] [place], [place] [phone] Janes, Cherelle, OD [address] [place] [address] documented as of this encounter Procedures Procedure Name Priority Date/Time Associated Diagnosis Comments ALBUMIN, RANDOM URINE W/CREATININE Routine 05/29/2023 12:41 PM EDT documented in this encounter Results * Albumin, Random Urine W/Creatinine (05/29/2023 12:41 PM EDT) Creatinine, Urine 28.66 mg/dL [facility] Microalbumin Urine <5.0 mg/L [facility] Microalbum Creatinine Ratio Ur TNP ug/mg cr [facility] Comment:Unable to calculate albumin/creatinine ratio due to lowmicroalbumin or creatinine result. 05/29/2023 12:4 1 PM EDT 05/29/2023 1:14 PM EDT us Mariya Patel DO LAB URINE ORDERABLES Final R esult [facility] [address] [place] [address] [phone] documented in this encounter Visit Diagnoses Not on filedocumented in this encounter Care Teams Coating Mixer Relationship Specialty Start Date End Date Mariya Patel DO [address] [place] [address] PCP - General Family Medicine 04/21/20 documented as of this encounter
--- OUTSIDE RECORDS SUMMARY | 2025-02-23 13:39 | XMS_ITS | Encounter Summary ---
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, without long-term current use of insulin, macular edema presence unspecified (CMS/HCC) (Primary Dx); Essential hypertension; Other hyperlipidemia; Tinnitus of both ears; Healthcare maintenance; Pain in left andrew Social History Tobacco Use Types Packs/Day Years [...] AM EDT documented as of this encounter Last Filed Vital Signs Vital Sign Reading [...] Mass Index 28.32 02/23/2025 10:01 AM EDT documented in this encounter Plan of Treatment Upcoming Encounters Date Type Department Care Team (Late st Contact Info) Description 02/25/2025 1:00 PM EDT Office Visit [facility] OPTOMETRY [address] [place], [place] [phone] Janes, Cherelle, OD [address] [place], [place] [phone] documented as of this encounter Procedures Procedure Name Priority Date/Time Associated Diagnosis Comments XR TIBIA FIBULA 2 VIEWS LEFT Routine 02/23/2025 11:17 AM EDT Pain in left andrew POCT GLYCATED HEMOGLOBIN, TOTAL Routine 02/23/2025 10:05 AM EDT 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 ?[place] [address] ?XRay Report ? Signed ? Patient: Toi Elise ?MR#: [id number] ?? [id number] ? : 1960 ?Acct:[id number] ? Age/Sex: 64 / M ?ADM Date: 02/23/25 ? Loc: HO.HHCX ? Attending Dr: Mariya Patel DO ? Ordering Physician: Mariya Patel DO ?? Date of Service: 02/23/25 ?? Procedure(s): XR tibia fibula LT 2V ?? Accession Number(s): [id number] ? cc: Mariya Patel DO ? EXAMINATION: [...] DD/ 1117 ? TD/TT: 02/23/25 1126 ? Motor Equipment Sergeant: ? Procedure Note Suma Aviles - 02/23/2025 [place] [address] XRay Report Signed Patient: Toi EliseMR#: [id number] : 1960Acct:[id number] Age/Sex: 64 / MADM Date: 02/23/25 Loc: HO.HHCX Attending Dr: Mariya Patel DO Ordering Physician: Mariya Patel DO Date of Service: 02/23/25 Procedure(s): XR tibia fibula LT 2V Accession Number(s): [id number] cc: Mariya Patel DO EXAMINATION: XR TIBIA [...] Rene Gaines MD 02/23/2025 11:34 AM EDT RP Dictated By: Rene Gaines MD Signed By: <Electronically signed by Rene Gaines MD in OV> 02/23/25 1134 DD/ 1117 TD/TT: 02/23/25 1126 Motor Equipment Sergeant: Mariya Patel DO IMG XR PROCEDURES Final Resu lt * (ABNORMAL) POCT HGB A1C (02/23/2025 10:05 AM EDT) Hemoglobin A1C 7.1(A) 4.0 - 6.0 % QC Media Lot # [id number] Lot# Expiration Date ,026 Blood 02/23/2025 10:0 5 AM EDT Mariya [...] CARE TEST ENTER/INDIGO T ORDERABLES Final Result documented in this encounter Visit Diagnoses Diagnosis 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, without long-term current use of insulin, macular edema presence unspecified (CMS/HCC)- Primary Essential hypertension Unspecified essential hypertension Other hyperlipidemia Tinnitus of both ears Unspecified tinnitus Healthcare maintenance Pain in left andrew documented in this encounter Additional Health Concerns Assessment Noted Time PHQ-9 Depression Total Score: 0 02/24/20 25 11:57 AM EDT documented as of this encounter Care Teams Reconciliation Machine Operator Relationship Specialty Start Date End Date Mariya Patel DO [address] [place] [address] PCP - General Family Medicine 04/21/20 documented as of this encounter
--- OUTSIDE RECORDS SUMMARY | 2025-02-23 13:39 | XMS_ITS | Encounter Summary ---
Author Organization [employer] Address 75 [facility] 7t [place] [address] Care Team Providers Care Head Cleaning Porter Name Role Phone Mariya Patel DO Primary Care Provider + [phone] Reason for Visit * Reason Comments Med Refill Encounter Details Date Type Department Care Team (Late st Contact Info) Description 06/21/2023 Refill [facility] MEDICINE [address] [place] [address] Mariya Patel DO [address] [place] [address] Seasonal allergic rhinitis, unspecified trigger Social History Tobacco Use Types Packs/Day Years [...] Description 02/25/2025 1:00 PM EDT Office Visit [facility] OPTOMETRY [address] [place] [address] Cherelle Marrero, OD [address] [place] [address] documented as of this encounter Visit Diagnoses Diagnosis Seasonal allergic rhinitis, unspecified trigger documented in this encounter Additional Health Concerns Assessment Noted Time PHQ-9 Depression Total Score: 0 01/30/20 23 9:09 AM EDT documented as of this encounter Care Teams Head Cleaning Porter Relationship Specialty Start Date End Date Mariya Patel DO [address] [place] [address] PCP - General Family Medicine 04/21/20 documented as of this encounter
--- OUTSIDE RECORDS SUMMARY | 2025-02-23 13:39 | XMS_ITS | Encounter Summary ---
Author Organization [employer] Address [address] [facility] 7[address] [place] [address] Care Team Providers Care Master Merchandiser Name Role Phone Mariya Patel DO Primary Care Provider + [phone] Reason for Visit * Reason Comments Med Refill Encounter Details Date Type Department Care Team ([facility] st Contact Info) Description 09/05/2024 Refill [facility] MED & PEDS [address] [place], [place] [phone] Mariya Patel DO [address] [place], [place] [phone] Social History Tobacco Use Types Packs/Day Years [...] to shut off services in your home? Yes 07/27/2024 Depression Answer Date Recorded Patient Health Questionnaire-2 Score 0 01/29/2023 Internet Access Answer Date Recorded Internet Access [...] Description 02/25/2025 1:00 PM EDT Office Visit [facility] OPTOMETRY [address] [place] [address] Janes, Cherelle, OD [address] [place] [address] documented as of this encounter Visit Diagnoses Not on filedocumented in this encounter Additional Health Concerns Assessment Noted Time PHQ-9 Depression Total Score: 0 01/30/20 23 9:09 AM EDT documented as of this encounter Care Teams Master Merchandiser Relationship Specialty Start Date End Date Mariya Patel DO [address] [place] [address] PCP - General Family Medicine 04/21/20 documented as of this encounter
--- OUTSIDE RECORDS SUMMARY | 2025-02-23 13:39 | XMS_ITS | Encounter Summary ---
Author Organization [employer] Address [address] [facility] 7t [place] [address] Care Team Providers Care Kitchen Manager Name Role Phone JorgeMariya Primary Care Provider + [phone] Encounter Details Date Type Department Care Team (Late st Contact Info) Description 09/26/2023 Abstract [facility] MEDICINE [address] [place], [place] [phone] Rachel Figueroa Social History Tobacco Use Types Packs/Day Years [...] Description 02/25/2025 1:00 PM EDT Office Visit [facility] OPTOMETRY [address] [place] [address] Janes, Cherelle, OD [address] [place] [address] documented as of this encounter Procedures Procedure Name Priority Date/Time Associated Diagnosis Comments COLONOSCOPY Routine 08/04/2018 documented in this encounter Results * Colonoscopy (08/04/2018) Colonoscopy Normal Normal Comment:Repeat in 10 years us Historical Provider HEALTH MAINTENANCE Final Result documented in this encounter Visit Diagnoses Not on filedocumented in this encounter Additional Health Concerns Assessment Noted Time PHQ-9 Depression Total Score: 0 01/30/20 23 9:09 AM EDT documented as of this encounter Care Teams Kitchen Manager Relationship Specialty Start Date End Date Mariya Patel DO [address] [place], [place] [phone] PCP - General Family Medicine 04/21/20 documented as of this encounter
--- OUTSIDE RECORDS SUMMARY | 2025-02-23 13:39 | XMS_ITS | Encounter Summary ---
Author Organization [employer] Address 75 [facility] 7t [place] [address] Care Team Providers Care Tie Presser Name Role Phone JorgeMariya Primary Care Provider + [phone] Encounter Details Date Type Department Care Team (Late Contact Info) Description 05/05/2023 Abstract [facility] ADULT DENTAL [address] [place] [address] Sy Avila DMD [address] [place] [address] Social History Tobacco Use Types Packs/Day Years [...] suspected to have Coronavirus/COVID-19? No / Unsure 05/02/2023 7:49 AM EDT documented as of this encounter Plan of Treatment Upcoming Encounters Date Type Department Care Team ([facility] Contact Info) Description 02/25/2025 1:00 PM EDT Office Visit [facility] OPTOMETRY [address] [place] [address] Cherelle Marrero, OD [address] [place] [address] documented as of this encounter Visit Diagnoses Not on filedocumented in this encounter Additional Health Concerns Assessment Noted Time PHQ-9 Depression Total Score: 0 01/30/20 23 9:09 AM EDT documented as of this encounter Care Teams Tie Presser Relationship Specialty Start Date End Date Mariya Patel DO [address] [place] [address] PCP - General Family Medicine 04/21/20 documented as of this encounter
== END 2025-02-23 11:18 | disposition home or self-care (01) ==
LOC: HO.HHCX 11:17
PROVIDERS: Visit Provider Family Medicine
DX: M79.662 Pain in left lower leg (principal)
CPT/HCPCS: 73590

== ENCOUNTER → 2025-02-23 11:17 | Outpatient (BNV) | payer OTHER, SELFPAY | PROVIDERS: Visit Provider Radiology Diagnostic Radiology | DX: M79.662 Pain in left lower leg (principal) | CPT/HCPCS: 73590 ==

== ENCOUNTER 2025-10-04 12:11 | Outpatient (REF) | payer OTHER, SELFPAY ==
--- OUTSIDE RECORDS SUMMARY | 2025-10-04 11:15 | XMS_ITS | Encounter Summary ---
Author Organization [employer] Address [address] [place] [address] Care Team Providers Care Cataloging Assistant Name Role Phone Mariya Patel DO Primary Care Provider + [phone] Encounter Details Date Type Department Care Team (Latest Contact Info) Description 10/04/2025 11:15 AM EST Office Visit [facility] MED[facility] [address] [place], [place] [phone] Mariya Patel DO [address] [place], [place] [phone] Acute coccygeal pain (Primary Dx); Type 2 [...] ntrol worrying 0 10/04/2025 2:06 PM Jojo Maqruis MA Worrying too much about diff erent [...] as of this encounter Plan of Treatment Scheduled Orders Name Type Priority Associated Diagnoses Orde r Schedule XR Lumbar Spine 2-3 Views Imaging Routine Acute coccygeal pain Expected: 10/04/2025, Expires: 10/04/2026 XR Sacrum Coccyx 2+ Views Imaging Routine Acute coccygeal pain Expected: 10/04/2025, Expires: 10/04/2026 documented as of this encounter Goals Goal Patient Goal Type Associated Problems Recent Progress Patient-Stated? Author Help patients manage their type 2 diabetes Care Plan Help patients manage their type 2 diabetes Jooj Erickson MA Weekly blood pressure task Care [...] their type 2 diabetes Jojo Erickson MA Patient has chronic kidney disease Care [...] Procedure Name Priority Date/Time Associated Diagnosis Comments VITAMIN D,25-OH,TOTAL,IA Routine 10/04/2025 12:16 PM EST [...] (HCC) documented in this encounter Results * Albumin, Random Urine W/Creatinine (10/04/2025 12:16 PM EST) Creatinine, Urine 55.81 mg/dL [facility] Microalbumin Urine 6.0 mg/L [facility] Microalbum Creatinine Ratio Ur 10.7 <30 ug/mg cr [facility] Comment:Albumin/Creatinine R atio Reference Ranges: Normal: < 30 ug/mg creatinine Microalbuminuria: 30 - 300 ug/mg creatinineClinical Albuminuria: > 300 ug/mg creatinine Urine (Urine, Random) 10/04/2025 12:16 PM EST 10/04/2025 1:00 PM EST Mariya Patel DO LAB URINE ORDERABLES Final R esult [facility] [address] [place], [place] [phone] * CBC (10/04/2025 12:16 PM EST) White Blood Count 9.9 4.8 - 10.8 X10*3/uL [facility] Red Blood Count 4.83 4.60 - 5.80 X10*6/uL [facility] Hemoglobin 14.7 14.0 - 18.0 g/dl [facility] Hematocrit 44.6 42.0 - 52.0 % [facility] Mean Corpuscular Volume 92.3 80.0 - 98.0 fL [facility] Mean Corpuscular Hemoglobin 30.4 27.0 - 33.0 pg [facility] Mean Corpuscular HGB Conc 33.0 31.0 - 36.0 g/dl [facility] Red Cell Distribution Width 12.2 11.0 - 16.0 % [facility] Platelet Count 222 160 - 400 X10*3/uL [facility] Mean Platelet Volume 11.1 9.4 - 12.4 fL [facility] NRBC Pct Auto 0.0 0.0 - 0.2 /100WBC [facility] NRBC Abs Auto 0.000 0.0 - 0.012 X10*3/uL [facility] Blood Venous blood specimen / Unknown 10/04/2025 12:16 PM EST 10/04/2025 1:23 PM EST us Mariya Jorge DO LAB BLOOD ORDERABLES Final R esult Performing Organization Address City/[facility] Co de Phone Number [facility] [address] [place] [phone] * (ABNORMAL) Basic Metabolic Panel (10/04/2025 12:16 PM EST) Sodium 142 135 - 145 mmol/L [facility] Potassium 4.5 3.3 - 5.1 mmol/L [facility] Chloride 106 96 - 108 mmol/L [facility] Carbon Dioxide 31(H) 22 - 29 mmol/L [facility] Anion Gap 10(L) 12 - 20 [facility] Urea Nitrogen (BUN) 16 9 - 16 mg/dL [facility] Creatinine, Serum 0.91 0.5 - 1.4 mg/dL [facility] Estimated Glomerular Filt Rate >60 [facility] Comment:Chronic Kidney Disea se: Estimated GFR < 60 mL/min/1.47g4Sdmggl Kidney Disease: Estimated GFR < 15 mL/min/1.73m2 Glucose 121(H) 60 - 115 mg/dL [facility] Calcium 9.5 8.4 - 10.2 mg/dL [facility] Blood Venous blood specimen / Unknown 10/04/2025 12:16 PM EST 10/04/2025 1:23 PM EST Mariya Patel DO LAB BLOOD ORDERABLES Final R esult Performing Organization Address City/[facility]/ZIP Co de Phone Number [facility] [address] [place] [phone] * (ABNORMAL) Hemoglobin A1c (10/04/2025 12:16 PM EST) Hemoglobin A1c 7.3(H) <6.0 % [facility] Comment:Hemoglobin A1C Refer ence Range Adults: 4.8 - 6.0 % Non diabetic: < 6.0 % Goal: < 7.0 %Additional Action Suggested: > 8.0 %Note: Hemoglobin A1c results are invalid for patients with abnormal amounts of HbF. Blood transfusions may impact the HbA1c concentration in the patient sample. Estimated Average Glucose 163 mg/dL [facility] Comment:eAG = Estimated ave rage glucose which is %A1C expressed asaverage glucose, using the formula of the [id number] Glucose study (ADAG), Diabetes Care, Vol.31,#8,2007 Blood Venous blood specimen / Unknown 10/04/2025 12:16 PM EST 10/04/2025 1:23 PM EST Mariya Patel LAB BLOOD ORDERABLES Final R esult Performing Organization Address [facility] Co de Phone Number [facility] [address] [place] [phone] * Hepatic Function Panel (10/04/2025 12:16 PM EST) Bilirubin, Total 0.5 0.0 - 1.0 mg/dL [facility] Bilirubin, Direct 0.2 0.0 - 0.5 mg/dL [facility] Aspartate Amino Transferase 26 5 - 37 U/L [facility] Alanine Aminotransferase 22 0 - 40 U/L [facility] Total Protein 7.1 6.5 - 8.0 g/dL [facility] Albumin Level 4.7 3.5 - 5.0 g/dL [facility] Alkaline Phosphatase 83 39 - 117 U/L [facility] Blood Venous blood specimen / Unknown 10/04/2025 12:16 PM EST 10/04/2025 1:23 PM EST Mariya Patel DO LAB BLOOD ORDERABLES Final R esult Performing Organization Address [facility] de Phone Number [facility] [address] [place] [phone] * TSH (10/04/2025 12:16 PM EST) Thyroid Stimulating Hormone 1.60 0.32 - 4.0 uIU/mL [facility] Comment:TSH 3rd Generation ( [facility]) Blood Venous blood specimen / Unknown 10/04/2025 12:16 PM EST 10/04/2025 1:23 PM EST Mariya Patel DO LAB BLOOD ORDERABLES Final R esult Performing Organization Address City/[facility]/ZIP Co de Phone Number [facility] [address] [place] [phone] * Lipid Panel, Standard (10/04/2025 12:16 PM EST) Triglycerides 93 <150 mg/dL [facility] Comment:Desirable Triglyceri de: less than 150 mg/dLBorderline High Triglyceride 150-199 mg/dLHigh Triglyceride: 200-499 mg/dLVery High Triglyceride: greater than or equal to 5OO mg/dL Cholesterol 115 <200 mg/dL [facility] Comment:Desirable Cholestero l: less than 200 mg/dLBorderline High Cholesterol: 200-239 mg/dLHigh Cholesterol: greater than 239 mg/dL LDL Cholesterol Calculated 49 <100 mg/dL [facility] Comment:Desirable LDL: less than 100 mg/dLNear Optimal/Above Optimal LDL: 110- 129 mg/dLBorderline High LDL: 130-159 mg/dLHigh LDL: 160-189 mg/dLVery High LDL: greater than or equal to 190 mg/dL HDL Cholesterol 48 >40 mg/dL [facility] Comment:Desirable HDL: great er than 40 mg/dL Note: This HDL assay may give artificially low results in patients with liver disease. Blood Venous blood specimen / Unknown 10/04/2025 12:16 PM EST 10/04/2025 1:23 PM EST us Mariya Patel DO LAB BLOOD ORDERABLES Final R esult Performing Organization Address City/[facility]/ZIP Co de Phone Number [facility] [address] [place] [phone] * (ABNORMAL) Vitamin D, 25-Hydroxy, Total, Immunoassay (10/04/2025 12:16 PM EST) Vitamin D 25-OH Total 13.7(L) >30 ng/mL [facility] Comment: Health Based Reference Values*< 20 ng/mL [id number] ng/mL Insufficient> 30 ng/mL Sufficient*Remy ORR. N [...] DO LAB BLOOD ORDERABLES Final R esult [facility] [address], [place] [phone] * T4, Free (10/04/2025 12:16 PM EST) Free T4 (Free Thyroxine) 1.05 0.71 - 1.85 ng/dL [facility] Blood Venous blood specimen / Unknown 10/04/2025 12:16 PM EST 10/04/2025 1:23 PM EST Mariya Patel DO LAB BLOOD ORDERABLES Final R esult [facility] [address] [place] [phone] * (ABNORMAL) POCT Hgb A1c (10/04/2025 11:29 AM EST) Hemoglobin A1C 7.2(A) 4.0 - 5.7 % QC Media Lot # [id number] Lot# Expiration Date 958,[id number] Blood 10/04/2025 11:2 9 AM EST Mariya Jorge FIGUEROA POINT OF CARE TEST ENTER/INDIGO T ORDERABLES Final Result * POCT Glucose (10/04/2025 11:29 AM EST) Glucose Blood, POC 190 60 - 200 mg/dL QC Media Lot # [id number] Lot# Expiration Date 3010,[id number] Blood Capillary blood specimen / Unknown 10/04/2025 11:29 AM EST Mariya Jorge FIGUEROA POINT OF CARE TEST ENTER/INDIGO T ORDERABLES [...] Time PHQ-9 Depression Total Score: 3 10/04/20 2:07 PM EST documented as of this encounter Care Teams Cataloging Assistant Relationship Specialty Start Date End Date Mariya Patel DO [address] [place] [phone] PCP - General Family Medicine 04/21/20 documented as of this encounter
[2025-10-04 13:32] LABS: Hematocrit 44.6 % (42.0-52.0); Hemoglobin 14.7 g/dl (14.0-18.0); Mean Corpuscular HGB Conc 33.0 g/dl (31.0-36.0); Mean Corpuscular Hemoglobin 30.4 pg (27.0-33.0); Mean Corpuscular Volume 92.3 fL (80.0-98.0); NRBC Abs Auto 0.000 X10*3/uL (0.0-0.012); NRBC Pct Auto 0.0 /100WBC (0.0-0.2); Platelet Count 222 X10*3/uL (160-400); Red Blood Count 4.83 X10*6/uL (4.60-5.80); White Blood Count 9.9 X10*3/uL (4.8-10.8)
[2025-10-04 13:51] LABS: Microalbum/Creatinine Ratio Ur 10.7 ug/mg cr (<30)
[2025-10-04 14:20] LABS: Alanine Aminotransferase 22 U/L (0-40); Albumin Level 4.7 g/dL (3.5-5.0); Alkaline Phosphatase 83 U/L (39-117); Anion Gap 10 (12-20); Aspartate Amino Transferase 26 U/L (5-37); Blood Urea Nitrogen 16 mg/dL (9-16); Calcium 9.5 mg/dL (8.4-10.2); Carbon Dioxide 31 mmol/L (22-29); Chloride 106 mmol/L (96-108); Cholesterol 115 mg/dL (<200); Estimated Glomerular Filt Rate > 60; HDL Cholesterol 48 mg/dL (>40); Potassium 4.5 mmol/L (3.3-5.1); Sodium 142 mmol/L (135-145); Total Protein 7.1 g/dL (6.5-8.0); Triglycerides 93 mg/dL (<150)
[2025-10-04 14:38] LABS: Free T4 (Free Thyroxine) 1.05 ng/dL (0.71-1.85); Thyroid Stimulating Hormone 1.60 uIU/mL (0.32-4.0)
--- OUTSIDE RECORDS SUMMARY | 2025-10-04 15:53 | XMS_ITS | Encounter Summary ---
Author Organization [employer] Address [address] [facility] [address] [place] [address] Care Team Providers Care Honing Machine Operator Tool Name Role Phone Mariya Patel DO Primary Care Provider [phone] Encounter Details Date Type Department Care Team (Late st Contact Info) Description 12/27/2022 Abstract [facility] ADULT DENTAL [address] [place], [place] [phone] Chepe De La Fuente DDS [address] [place], [place] [phone] Social History Tobacco Use Types Packs/Day Years [...] on file documented as of this encounter Visit Diagnoses Not on filedocumented in this encounter Care Teams Honing Machine Operator Tool Relationship Specialty Start Date End Date Mariya Patel DO [address] [place], [place] [phone] PCP - General Family Medicine 04/21/20 documented as of this encounter
--- OUTSIDE RECORDS SUMMARY | 2025-10-04 15:53 | XMS_ITS | Clinical Summary ---
Author Organization [employer] Address [address] [facility] 7[address] [place] [address] Care Team Providers Care Glass Melt Operator Name Role Phone JorgeMariya Primary Care Provider + [phone] Allergies No known active allergies Medications cholecalciferol [...] kit 024 Active Lancets (OneTouch Delica Plus [id number]) misc 1 each 4 times daily. TEST BLOOD SUGAR 4 TIMES A DAY 100 each 11 024 Active Diclofenac Sodium 1 % gel [...] BOTH EYES TWICE DAILY FOR ITCHING Active baclofen (Lioresal) 10 MG tablet TAKE 0.5-1 TABLETS BY MOUTH IF NEEDED IN THE MORNING, AT NOON, AND AT BEDTIME FOR MUSCLE SPASMS. 60 tablet 1 024 Active acetaminophen (Tylenol 8 Hour) 650 [...] BY MOUTH EVERY DAY 90 tablet 3 Active Aspirin Low Dose 81 MG EC tabletIndications :Type 2 diabetes mellitus with other specified complication, unspecified whether senior living insulin use (HCC) TAKE 1 TABLET BY MOUTH EVERY DAY 90 tablet 3 025 Active Alcohol Swabs (CVS Prep) 70 % pads USE 1 PAD TO SKIN ROUTE EVERY DAY 100 each 5 025 Active glucose blood (OneTouch Verio) test strip USE TO TEST BLOOD SUGAR 4 TIMES A DAY 100 strip 12 025 Active Farxiga 10 MG TAKE 1 TABLET BY MOUTH EVERY DAY IN THE MORNING 90 tablet 3 Active metFORMIN (Glucophage) 500 MG tablet TAKE 2 TABLETS BY ORAL ROUTE IN THE MORNING AND 2 TABLETS BY MOUTH AT BEDTIME 360 tablet 3 025 Active sildenafil (Viagra) 50 MG tabletIndications :Male erectile dysfunction, unspecified TAKE 1 TABLET 1 HOUR BEFORE SEXUAL RELATIONS ONCE DAILY NEEDED. 15 tablet 1 025 Active sildenafil (Viagra) 50 MG tabletIndications :Male erectile dysfunction, unspecified TAKE 1 TABLET 1 HOUR BEFORE SEXUAL RELATIONS ONCE DAILY NEEDED. 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, without long-term current use of insulin, macular edema presence unspecified (HCC); Encounter for immunization 10/04/2025 Refill [facility] MEDICINE [address] [place] [address] Mariya Patel DO Male erectile dysfunction, unspecified 10/04/2025 Travel 10/01/2025 Telephone [facility] MEDICINE [address] [place] [address] Mariya Patel DO Chart Prep 07/27/2025 Refill [facility] [address] [place] [address] Mariya Patel DO from Last 3 Months Immunizations Immunization Administration Dates Next Due Hep B, adult 06/11/2021,10/10/2017,09/09/2017 Influenza Injectable Quadriv alant Preservative Free IIV4 MDCK 10/12/2021 Influenza injectable quadriv alent preservative free 10/07/2023,07/29/2022,10/27/2018,09/09 Influenza, seasonal, injecta ble, preservative free 10/04/2025,08/13/2024 Moderna Covid-19 Vaccine 6+ Bivalent 01/29/2023 Pfizer Covid-19 Vaccine 12+ 10/04/2025,,10/09/2023 Pneumococcal Conjugate PCV 20 05/29/2023 Pneumococcal Polysaccharide [...] Mass Index 27.98 10/04/2025 11:23 AM EST Plan of Treatment Health Maintenance Due Date Last Done Comments CT Colonography 1960 FIT DNA/Cologuard 1960 FIT 1960 FOBT 1960 Sigmoidoscopy 1960 Diabetes: Foot Exam 1970 Dental Oral Exam 06/17/2023 12/17/2022 Dental Prophylaxis 06/24/2023 12/24/2022 Dental X-Ray: Bitewings 12/18/2023 12/17/2022 Dental X-Ray: Full Mouth 12/18/2025 12/17/2022 Diabetes: Hemoglobin A1C 01/04/2026 025, 10/04/2025, 02/23/2025, Additional history exists Disability Screening 02/23/2026 02/23/2025 SDOH Screening 02/23/2026 02/23/2025 Eye Exam 02/25/2026 02/25/2025, 02/08, 02/25/2025, Additional history exists Alcohol/Substance Use Screening 10/04/2026 10/04/2025 Depression Screening 10/04/2026 10/04/2025, 10/04/20 Diabetes: Urine Protein Screening 10/04/2026 10/04/2025, 07/23/2024, 05/29/2023, Additional history exists Lipid Panel 10/04/2026 10/04/2025, 07/11, 05/29/2023, Additional history exists Tobacco Screening 10/04/2026 10/04/2025 DTaP/Tdap/Td Vaccines (2 - Td or Tdap) 05/20/2027 05/20/2017 Colonoscopy 08/04/2028 08/04/2018 Colorectal Cancer Screening 08/04/2028 HIV Screening Completed 11/30/2020 Hepatitis C Screening Completed 11/30/2020 Hepatitis B Vaccines Completed 06/11/2021, 10/10/2017, 09/09/2017 Pneumococcal Vaccine: 50+ Years Completed 05/29/2023, 05/20/2017 Zoster Vaccines Completed 12/09/2023, 10/07/2023 RSV Patients and Patients Aged 60 years or older Completed 03/24/2024 COVID-19 Vaccine Completed 10/04/2025, 02/2024, 10/09/2023, Additional history exists Influenza Vaccine Completed 10/04/2025, , 10/07/2023, Additional history exists HIB Vaccines Aged Out [...] patient's age to complete this topic Meningococcal B Vaccine Aged Out No l onger eligible based on patient's age to complete this topic Meningococcal Vaccine Aged Out No gautam randee eligible based on patient's age to complete this topic RSV under 20 months Aged Out No longe r eligible based on patient's age to complete this topic Rotavirus Vaccines Aged Out No longer eligible based on patient's age to complete this topic Goals Goal Patient Goal Type Associated Problems Recent Progress Patient-Stated? Author Help patients manage their type 2 diabetes Care Plan Help patients manage their type 2 diabetes No Jojo Velez MA Weekly blood pressure task Care Plan Weekly blood pressure task No Jojo Velez MA Help patients manage their type 2 diabetes Care Plan Help patients manage their type 2 diabetes Jojo Erickson MA Patient has diabetic eye [...] chronic kidney disease No Jojo Velez MA Procedures Procedure Name Priority Date/Time Associated Diagnosis Comments ALBUMIN, RANDOM URINE W/CREATININE Routine 10/04/2025 12:16 [...] of insulin, macular edema presence unspecified (HCC) VITAMIN D,25-OH,TOTAL,IA Routine 10/04/2025 12:16 PM EST [...] of insulin, macular edema presence unspecified (HCC) PROPHYLAXIS - ADULT Routine 12/24/2022 1 0:30 [...] Recently Relevant to Health Maintenance Results * (ABNORMAL) Vitamin D, 25-Hydroxy, Total, Immunoassay (10/04/2025 12:16 PM EST) Vitamin D 25-OH Total 13.7(L) >30 ng/mL [facility] Comment: Health Based Reference Values*< 20 ng/mL [id number] ng/mL Insufficient> 30 ng/mL Sufficient*Remy ORR. N [...] DO LAB BLOOD ORDERABLES Final R esult [facility] [address] [place] [address] [phone] * Albumin, Random Urine W/Creatinine (10/04/2025 12:16 PM EST) Creatinine, Urine 55.81 mg/dL [facility] Microalbumin Urine 6.0 mg/L [facility] Microalbum Creatinine Ratio Ur 10.7 <30 ug/mg cr [facility] Comment:Albumin/Creatinine R atio Reference Ranges: Normal: < 30 ug/mg creatinine Microalbuminuria: 30 - 300 ug/mg creatinineClinical Albuminuria: > 300 ug/mg creatinine Urine (Urine, Random) 10/04/2025 12:16 PM EST 10/04/2025 1:00 PM EST Mariya Patel DO LAB URINE ORDERABLES Final R esult [facility] [address] [place], [place] [phone] * CBC (10/04/2025 12:16 PM EST) White Blood Count 9.9 4.8 - 10.8 X10*3/uL [facility] Red Blood Count 4.83 4.60 - 5.80 X10*6/uL [facility] Hemoglobin 14.7 14.0 - 18.0 g/dl [facility] Hematocrit 44.6 42.0 - 52.0 % [facility] Mean Corpuscular Volume 92.3 80.0 - 98.0 fL [facility] Mean Corpuscular Hemoglobin 30.4 27.0 - 33.0 pg [facility] Mean Corpuscular HGB Conc 33.0 31.0 - 36.0 g/dl [facility] Red Cell Distribution Width 12.2 11.0 - 16.0 % [facility] Platelet Count 222 160 - 400 X10*3/uL [facility] Mean Platelet Volume 11.1 9.4 - 12.4 fL [facility] NRBC Pct Auto 0.0 0.0 - 0.2 /100WBC [facility] NRBC Abs Auto 0.000 0.0 - 0.012 X10*3/uL [facility] Blood Venous blood specimen / Unknown 10/04/2025 12:16 PM EST 10/04/2025 1:23 PM EST Mariya Patel DO LAB BLOOD ORDERABLES Final R esult Performing Organization Address [facility]/ZIP Co de Phone Number [facility] [address] [place] [phone] * TSH (10/04/2025 12:16 PM EST) Thyroid Stimulating Hormone 1.60 0.32 - 4.0 uIU/mL [facility] Comment:TSH 3rd Generation ( [facility]) Blood Venous blood specimen / Unknown 10/04/2025 12:16 PM EST 10/04/2025 1:23 PM EST Mariya Patel DO LAB BLOOD ORDERABLES Final R esult Performing Organization Address [facility] Co de Phone Number [facility] [address] [place] [phone] * T4, Free (10/04/2025 12:16 PM EST) Free T4 (Free Thyroxine) 1.05 0.71 - 1.85 ng/dL [facility] Blood Venous blood specimen / Unknown 10/04/2025 12:16 PM EST 10/04/2025 1:23 PM EST Mariya Patel DO LAB BLOOD ORDERABLES Final R esult Performing Organization Address [facility] Co de Phone Number [facility] [address] [place] [phone] * (ABNORMAL) Hemoglobin A1c (10/04/2025 12:16 PM EST) Hemoglobin A1c 7.3(H) <6.0 % [facility] Comment:Hemoglobin A1C Refer ence Range Adults: 4.8 - 6.0 % Non diabetic: < 6.0 % Goal: < 7.0 %Additional Action Suggested: > 8.0 %Note: Hemoglobin A1c results are invalid for patients with abnormal amounts of HbF. Blood transfusions may impact the HbA1c concentration in the patient sample. Estimated Average Glucose 163 mg/dL [facility] Comment:eAG = Estimated ave rage glucose which is %A1C expressed asaverage glucose, using the formula of the R0A-FjtpocwHscfwio Glucose study (ADAG), Diabetes Care, Vol.31,#8,2007 Blood Venous blood specimen / Unknown 10/04/2025 12:16 PM EST 10/04/2025 1:23 PM EST Mariya Jorge LAB BLOOD ORDERABLES Final R esult Performing Organization Address [facility] Co de Phone Number [facility] [address] [place] [address] [phone] * Hepatic Function Panel (10/04/2025 12:16 PM EST) Bilirubin, Total 0.5 0.0 - 1.0 mg/dL [facility] Bilirubin, Direct 0.2 0.0 - 0.5 mg/dL [facility] Aspartate Amino Transferase 26 5 - 37 U/L [facility] Alanine Aminotransferase 22 0 - 40 U/L [facility] Total Protein 7.1 6.5 - 8.0 g/dL [facility] Albumin Level 4.7 3.5 - 5.0 g/dL [facility] Alkaline Phosphatase 83 39 - 117 U/L [facility] Blood Venous blood specimen / Unknown 10/04/2025 12:16 PM EST 10/04/2025 1:23 PM EST Mariya Jorge DO LAB BLOOD ORDERABLES Final R esult Performing Organization Address [facility] Co de Phone Number [facility] [address] [place] [address] [phone] * Lipid Panel, Standard (10/04/2025 12:16 PM EST) Triglycerides 93 <150 mg/dL [facility] Comment:Desirable Triglyceri de: less than 150 mg/dLBorderline High Triglyceride 150-199 mg/dLHigh Triglyceride: 200-499 mg/dLVery High Triglyceride: greater than or equal to 5OO mg/dL Cholesterol 115 <200 mg/dL [facility] Comment:Desirable Cholestero l: less than 200 mg/dLBorderline High Cholesterol: 200-239 mg/dLHigh Cholesterol: greater than 239 mg/dL LDL Cholesterol Calculated 49 <100 mg/dL [facility] Comment:Desirable LDL: less than 100 mg/dLNear Optimal/Above Optimal LDL: 110- 129 mg/dLBorderline High LDL: 130-159 mg/dLHigh LDL: 160-189 mg/dLVery High LDL: greater than or equal to 190 mg/dL HDL Cholesterol 48 >40 mg/dL [facility] Comment:Desirable HDL: great er than 40 mg/dL Note: This HDL assay may give artificially low results in patients with liver disease. Blood Venous blood specimen / Unknown 10/04/2025 12:16 PM EST 10/04/2025 1:23 PM EST us Mariya Patel DO LAB BLOOD ORDERABLES Final R esult [facility] [address] [place] [phone] * (ABNORMAL) Basic Metabolic Panel (10/04/2025 12:16 PM EST) Sodium 142 135 - 145 mmol/L [facility] Potassium 4.5 3.3 - 5.1 mmol/L [facility] Chloride 106 96 - 108 mmol/L [facility] Carbon Dioxide 31(H) 22 - 29 mmol/L [facility] Anion Gap 10(L) 12 - 20 [facility] Urea Nitrogen (BUN) 16 9 - 16 mg/dL [facility] Creatinine, Serum 0.91 0.5 - 1.4 mg/dL [facility] Estimated Glomerular Filt Rate >60 [facility] Comment:Chronic Kidney Disea se: Estimated GFR < 60 mL/min/[id number] Kidney Disease: Estimated GFR < 15 mL/min/1.73m2 Glucose 121(H) 60 - 115 mg/dL [facility] Calcium 9.5 8.4 - 10.2 mg/dL [facility] Blood Venous blood specimen / Unknown 10/04/2025 12:16 PM EST 10/04/2025 1:23 PM EST Mariya Jorge DO LAB BLOOD ORDERABLES Final R esult [facility] [address] [place] [phone] * (ABNORMAL) POCT Hgb A1c (10/04/2025 11:29 AM EST) Pathologist [facility] Hemoglobin A1C 7.2(A) 4.0 - 5.7 % QC Media Lot # [id number] Lot# Expiration Date 830 Blood 10/04/2025 11:2 9 AM EST Mariya Patel DO POINT OF CARE TEST ENTER/INDIGO T ORDERABLES Final Result * POCT Glucose (10/04/2025 11:29 AM EST) Pathologist [facility] Glucose Blood, POC 190 60 - 200 mg/dL QC Media Lot # [id number] Lot# Expiration Date 3,,026 Blood Capillary blood specimen / Unknown 10/04/2025 11:29 AM EST Mariya Patel DO POINT OF CARE TEST ENTER/INDIGO T ORDERABLES Final Result * HEPATITIS C AB W/REFL TO HCV RNA, QN, PCR (11/30/2020 8:47 AM EST) Pathologist [facility] HEPATITIS C ANTIBODY NON-REACT LAMIN NON-REACT LAMIN [facility] INDEX 0.03 <1.00 [facility] Comment: HCV antibody was non-reactive. There is no laboratory evidence of HCV infection. In most cases, no further action is required. However, if recent HCV exposure is suspected, a test for HCV RNA (test code 30444) is suggested. For additional information please refer to http://ABB.FoundationDB/faq/FEH17p0 (This link is being provided for informational/ educational purposes only.) 11/30/2020 8:47 AM EST Mariya Patel DO HISTORICAL/NON ORDERABLE LAB S Final Result Performing Organization Address [facility] de Phone Number [facility] [address] [place] [address], * HIV 1/2 ANTIGEN/ANTIBODY,FOURTH GENERATION W/RFL (11/30/2020 8:47 AM EST) HIV-1/2 ANTIGEN AND ANTIBODIES, 4TH GENERATION W/ REFLEX NON-REACT LAMIN NON-REACT LAMIN [facility] Comment: HIV-1 antigen and HIV-1/HIV-2 antibodies were not detected. There is no laboratory evidence of HIV infection. PLEASE NOTE: This information has been disclosed to you from records whose confidentiality may be protected by state law. If your state requires such protection, then the state law prohibits you from making any further disclosure of the information without the specific written consent of the person to whom it pertains, or as otherwise permitted by law. A general authorization for the release of medical or other information is NOT sufficient for this purpose. For additional information please refer to http://ABB.FoundationDB/faq/OXU303 (This link is being provided for informational/ educational purposes only.) The performance of this assay has not been clinically validated in patients less than 2 years old. 11/30/2020 8:47 AM EST Mariya Patel DO LAB BLOOD ORDERABLES Final R esult Performing Organization Address [facility] de Phone Number [facility] [address] [place] [address], * Hm Colonoscopy (08/04/2018) Colonoscopy Normal Normal Comment:Repeat in 10 years Historical Provider HEALTH MAINTENANCE Final Result from Last 3 Months or Most Recently Relevant to Health Maintenance Additional Health Concerns Active Problems Noted Date [...] 10/04/2025 Patient has chronic kidney disease 10/04/2025 Insurance [facility] CARE < 65 [place] [id number] DENTAL [facility] Care Teams Glass Melt Operator Relationship Specialty Start Date End Date Mariya Patel DO [address] [place] [address] PCP - General Family Medicine 04/21/20
--- OUTSIDE RECORDS SUMMARY | 2025-10-04 15:53 | XMS_ITS | Encounter Summary ---
Author Organization [employer] Address [address] [facility] [address]t [place] [address] Care Team Providers Care Church History Teacher Name Role Phone Mariya Patel DO Primary Care Provider + [phone] Encounter Details Date Type Department Care Team (Late st Contact Info) Description 02/26/2023 Abstract [facility] ADULT DENTAL [address] [place] [address] Sy Avila DMD [address] [place] [address] Social History Tobacco Use Types Packs/Day Years [...] documented as of this encounter Care Teams Church History Teacher Relationship Specialty Start Date End Date Mariya Patel DO [address] [place] [address] PCP - General Family Medicine 04/21/20 documented as of this encounter
--- OUTSIDE RECORDS SUMMARY | 2025-10-04 15:53 | XMS_ITS | Encounter Summary ---
Author Organization [employer] Address [address] [facility] [address]t [place] [address] Care Team Providers Care Clinical Quality Assurance Specialist Name Role Phone Mariya Patel DO Primary Care Provider + [phone] Encounter Details Date Type Department Care Team (Late st Contact Info) Description 02/26/[address] [facility] ADULT DENTAL [address] [place] [address] Sy Avila DMD [address] [place] [address] Social History Tobacco Use Types Packs/Day Years [...] documented as of this encounter Care Teams Clinical Quality Assurance Specialist Relationship Specialty Start Date End Date Mariya Paetl DO [address] [place] [address] PCP - General Family Medicine 04/21/20 documented as of this encounter
--- OUTSIDE RECORDS SUMMARY | 2025-10-04 15:53 | XMS_ITS | Encounter Summary ---
Author Organization [employer] Address [address] [facility] [address] [place] [address] Care Team Providers Care Forest Ecology Professor Name Role Phone Mariya Patel DO Primary Care Provider + [phone] Reason for Visit * Reason Onset Date Comments Med Refill 03/01/2025 Encounter Details Date Type Department Care Team (Late st Contact Info) Description 03/01/2025 Refill [facility] MEDICINE [address] [place], [place] [phone] Mariya Patel DO [address] [place], [place] [phone] Male erectile dysfunction, unspecified Social History Tobacco Use Types Packs/Day Years [...] your housing situation today? I have nicholas sing 07/27/[address] you li [...] as of this encounter Visit Diagnoses Diagnosis Male erectile dysfunction, unspecified documented in this encounter Additional Health Concerns Assessment Noted Time PHQ-9 Depression Total Score: 0 02/24/20 25 11:57 AM EDT documented as of this encounter Care Teams Forest Ecology Professor Relationship Specialty Start Date End Date Mariya Patel DO [address] [place] [address] PCP - General Family Medicine 04/21/20 documented as of this encounter
--- OUTSIDE RECORDS SUMMARY | 2025-10-04 15:54 | XMS_ITS | Encounter Summary ---
Author Organization [employer] Address [address] [facility] [address]t [place] [address] Care Team Providers Care Incident Handler Name Role Phone TonyMariya bauer Primary Care Provider + [phone] Encounter Details Date Type Department Care Team (Latest Contact Info) Description 10/04/2025 Travel Social History Tobacco Use Types Packs/Day [...] AM EDT documented as of this encounter Functional Status * Over the past 2 weeks, how often have you been bothered by any of the following problems? Question Answer Date of Assessment Author Patient Health Questionnaire -2 Score 0 10/04/2025 2:07 PM Jojo Marquis MA * Little interest or pleasure in doing things Answer Date of Assessment Author Not at all 10/04/2025 2:07 PM Vane Marquis MA * Feeling down, depressed, or hopeless [...] MA Trouble relaxing 0 10/04/2025 2:06 PM Jojo Camilo MA Being so restless that it is [...] task Care Plan Weekly blood pressure task Jojo Erickson MA Help patients manage their type 2 [...] Velez MA documented as of this encounter Visit Diagnoses Not on filedocumented in this encounter Additional Health Concerns Active [...] documented as of this encounter Care Teams Incident Handler Relationship Specialty Start Date End Date Mariya Patel DO [address] [place] [phone] PCP - General Family Medicine 04/21/20 documented as of this encounter
--- OUTSIDE RECORDS SUMMARY | 2025-10-04 15:54 | XMS_ITS | Encounter Summary ---
Author Organization [employer] Address [address] [facility] [address] [place] [address] Care Team Providers Care Counter Cutter Name Role Phone Jorge Mariya Primary Care Provider [phone] Reason for Visit * Reason Onset Date Comments Appointment 07/31/2023 Toi rooney 1960 Patient stated he was seen on 07/29/2023 for SRP and also stated doctor came into room and stated he needed an antibiotic for a cyst but prescription has not been sent to pharmacy please advise Encounter Details Date Type Department Care Team (Late st Contact Info) Description 07/31/2023 Telephone [facility] ADULT DENTAL [address] [place] [address] Sy Avila DMD [address] [place] [address] Appointment (Toi Browningiago 1960 Patient stated he was seen on [...] Miscellaneous Notes * Telephone Encounter - Savannah Cortez - 07/31/2023 10:51 AM EDT Okay thank [...] documented in this encounter Plan of Treatment Not on file documented as of this encounter Visit Diagnoses Not on filedocumented in this encounter Additional Health Concerns Assessment Noted Time PHQ-9 Depression Total Score: 0 01/30/20 23 9:09 AM EDT documented as of this encounter Care Teams Counter Cutter Relationship Specialty Start Date End Date Mariya Patel DO [address] [place] [address] PCP - General Family Medicine 04/21/20 documented as of this encounter
--- OUTSIDE RECORDS SUMMARY | 2025-10-04 15:54 | XMS_ITS | Encounter Summary ---
Author Organization [employer] Address 75 [facility] 7t [place] [address] Care Team Providers Care Residential Counselor Name Role Phone Mariya Patel DO Primary Care Provider + [phone] Reason for Visit * Reason Comments Med Refill Encounter Details Date Type Department Care Team (Late st Contact Info) Description 09/05/2024 Refill [facility] MED & PEDS [address] [place], [place] [phone] Mariya Patel DO [address] [place], [place] [phone] Social History Tobacco Use Types Packs/Day Years [...] documented as of this encounter Care Teams Residential Counselor Relationship Specialty Start Date End Date Mariya Patel DO [address] [place] [address] PCP - General Family Medicine 04/21/20 documented as of this encounter
--- OUTSIDE RECORDS SUMMARY | 2025-10-04 15:54 | XMS_ITS | Encounter Summary ---
Author Organization [employer] Address [address] [facility] [address] 7t [place] [address] Care Team Providers Care Comptometrist Name Role Phone Mariya Patel DO Primary Care Provider + [phone] Encounter Details Date Type Department Care Team (Late st Contact Info) Description 12/02/2022 Orders Only [facility] CHC MED & PEDS [address] [place], [place] [phone] Mariya Cook LPN Social History Tobacco Use [...] on file documented as of this encounter Procedures Procedure Name Priority Date/Time Associated Diagnosis Comments ALBUMIN, RANDOM URINE W/CREATININE Routine 05/29/2023 12:41 PM EDT documented in this encounter Results * Albumin, Random Urine W/Creatinine (05/29/2023 12:41 PM EDT) Creatinine, Urine 28.66 mg/dL [facility] Microalbumin Urine <5.0 mg/L [facility] Microalbum Creatinine Ratio Ur TNP ug/mg cr [facility] Comment:Unable to calculate albumin/creatinine ratio due to lowmicroalbumin or creatinine result. 05/29/2023 12:4 1 PM EDT 05/29/2023 1:14 PM EDT us Mariya Patel DO LAB URINE ORDERABLES Final R esult Performing Organization Address City/State/[facility] Co de Phone Number [facility] [address] [place] [address] [phone] documented in this encounter Visit Diagnoses Not on filedocumented in this encounter Care Teams Comptometrist Relationship Specialty Start Date End Date Mariya Patel DO [address] [place] [address] PCP - General Family Medicine 04/21/20 documented as of this encounter
--- OUTSIDE RECORDS SUMMARY | 2025-10-04 15:54 | XMS_ITS | Encounter Summary ---
Author Organization [employer] Address 75 [facility] 7t [place] [address] Care Team Providers Care Glass Bender Name Role Phone Mariya Patel DO Primary Care Provider + [phone] Reason for Visit * Reason Onset Date Comments Med Refill 12/30/2023 Encounter Details Date Type Department Care Team (Late st Contact Info) Description 12/30/2023 Refill [facility] MED & PEDS [address] [place] [address] Mariya Patel DO [address] [place], [place] [phone] Social History Tobacco Use Types Packs/Day Years [...] documented as of this encounter Care Teams Glass Bender Relationship Specialty Start Date End Date Mariya Patel DO [address] [place] [address] PCP - General Family Medicine 04/21/20 documented as of this encounter
--- OUTSIDE RECORDS SUMMARY | 2025-10-04 15:54 | XMS_ITS | Encounter Summary ---
Author Organization [employer] Address 75 [facility] 7[address] [place] [address] Care Team Providers Care Customer Service Sales Associate Name Role Phone Mariya Patel DO Primary Care Provider + [phone] Reason for Visit * Reason Comments Med Refill Encounter Details Date Type Department Care Team (Late st Contact Info) Description 06/21/2023 Refill [facility] MEDICINE [address] [place] [address] Mariya Patel DO [address] [place], [place] [phone] Seasonal allergic rhinitis, unspecified trigger Social History [...] documented as of this encounter Care Teams Customer Service Sales Associate Relationship Specialty Start Date End Date Mariya Patel DO 230 [place] [address] PCP - General Family Medicine 04/21/20 documented as of this encounter
--- OUTSIDE RECORDS SUMMARY | 2025-10-04 15:54 | XMS_ITS | Encounter Summary ---
Author Organization [employer] Address 75 [facility] 7t [place] [address] Care Team Providers Care Draw Bench Operator Name Role Phone Mariya Patel DO Primary Care Provider + [phone] Encounter Details Date Type Department Care Team (Late st Contact Info) Description 05/05/2023 Abstract [facility] ADULT DENTAL [address] [place] [address] Sy Avila DMD [address] [place] [address] Social History Tobacco Use Types Packs/Day Years [...] documented as of this encounter Care Teams Draw Bench Operator Relationship Specialty Start Date End Date Mariya Patel DO 230 [place] [address] PCP - General Family Medicine 04/21/20 documented as of this encounter
--- OUTSIDE RECORDS SUMMARY | 2025-10-04 15:54 | XMS_ITS | Encounter Summary ---
Author Organization [employer] Address [address] [facility] [address] 7t [place] [address] Care Team Providers Care Run Boat Operator Name Role Phone JorgeMariya Primary Care Provider + [phone] Encounter Details Date Type Department Care Team (Late st Contact Info) Description 09/26/2023 Abstract [facility] MEDICINE 230 [place], [place] [phone] Rachel Figueroa Social History Tobacco Use Types [...] documented as of this encounter Care Teams Run Boat Operator Relationship Specialty Start Date End Date Mariya Patel DO [address] [place] [address] PCP - General Family Medicine 04/21/20 documented as of this encounter
--- OUTSIDE RECORDS SUMMARY | 2025-10-04 15:54 | XMS_ITS | Encounter Summary ---
Author Organization [employer] Address 75 [facility] 7t [place] [address] Care Team Providers Care Gift Wrapper Name Role Phone Mariya Patel DO Primary Care Provider + [phone] Reason for Visit * Reason Onset Date Comments Med Refill 12/11/2023 Encounter Details Date Type Department Care Team (Late st Contact Info) Description 12/11/2023 Refill [facility] MED & PEDS [address] [place], [place] [phone] Mariya Patel DO 230 [place], [place] [phone] Social History Tobacco Use Types Packs/Day Years [...] documented as of this encounter Care Teams Gift Wrapper Relationship Specialty Start Date End Date Mariya Patel DO [address] [place] [address] PCP - General Family Medicine 04/21/20 documented as of this encounter
--- OUTSIDE RECORDS SUMMARY | 2025-10-04 15:54 | XMS_ITS | Encounter Summary ---
Author Organization [employer] Address 75 [facility] 7t [place] [address] Care Team Providers Care Programmable Logic Controller Assembler Name Role Phone Mariya Patel DO Primary Care Provider + [phone] Reason for Visit * Reason Onset Date Comments Med Refill 12/11/2023 Encounter Details Date Type Department Care Team (Late st Contact Info) Description 12/11/2023 Refill [facility] MEDICINE [address] [place], [place] [phone] Mariya Patel DO 230 [place], [place] [phone] Social History Tobacco Use Types Packs/Day Years [...] documented as of this encounter Care Teams Programmable Logic Controller Assembler Relationship Specialty Start Date End Date Mariya Patel DO [address] [place] [address] PCP - General Family Medicine 04/21/20 documented as of this encounter
--- OUTSIDE RECORDS SUMMARY | 2025-10-04 15:54 | XMS_ITS | Encounter Summary ---
Author Organization [employer] Address 75 [facility] 7t [place] [address] Care Team Providers Care Training And Development Specialist Name Role Phone Mariya Patel DO Primary Care Provider + [phone] Reason for Visit * Reason Onset Date Comments Med Refill 10/04/2025 Encounter Details Date Type Department Care Team (Late st Contact Info) Description 10/04/2025 Refill [facility] 230 [place], [place] [phone] Mariya Patel DO [address] [place], [place] [phone] Male erectile dysfunction, unspecified Social History Tobacco [...] your housing situation today? I have nicholas abbie 07/27/[address] you li [...] Not difficult at all 10/04/2025 2:07 PM EST Jojo Albert MA documented as of this encounter Plan [...] documented as of this encounter Care Teams Training And Development Specialist Relationship Specialty Start Date End Date Mariya Patel DO [address] [place] [address] PCP - General Family Medicine 04/21/20 documented as of this encounter
--- OUTSIDE RECORDS SUMMARY | 2025-10-04 15:54 | XMS_ITS | Encounter Summary ---
Author Organization [employer] Address 75 [facility] 7t [place] [address] Care Team Providers Care Pin Sorter And Bagger Name Role Phone Mariya Patel DO Primary Care Provider + [phone] Reason for Visit * Reason Onset Date Comments Chart Prep 10/01/2025 Encounter Details Date Type Department Care Team ([facility] st Contact Info) Description 10/01/[address] [facility] MEDICINE 230 [place] [address] Mariya Patel DO 230 [place], [place] [phone] Chart Prep Social History Tobacco Use Types Packs/Day Years [...] encounter Miscellaneous Notes * Telephone Encounter - Jojo Velez [place] - 10/01/2025 8:39 AM EST Chart Prep Labs: done Images: done Referrals: complete Vaccines due: Covid and Flu Screenings: foot exam Overdue care gaps: A1c, Glucose, SBIRT, PHQ-9, and ABHIJIT-7 documented in this encounter Plan of Treatment [...] has diabetic eye disease Jojo Erickson MA Help patients manage their type 2 diabetes Care Plan Help patients manage their type 2 diabetes Jojo Erickson MA Patient has chronic kidney disease Care Plan Patient has chronic kidney disease Jojo Erickson MA Weekly blood pressure task Care Plan Weekly blood pressure task Jojo Erickson MA Weekly blood pressure task [...] 10/01/2025 Patient has chronic kidney disease 10/01/2025 Assessment Noted Time PHQ-9 Depression Total Score: 0 02/24/20 25 11:57 AM EDT documented as of this encounter Care Teams Pin Sorter And Bagger Relationship Specialty Start Date End Date Mariya Patel DO [address] [place] [address] PCP - General Family Medicine 04/21/20 documented as of this encounter
== END 2025-10-04 12:12 | disposition home or self-care (01) ==
LOC: HO.HHCX 12:11
PROVIDERS: PCP Family Medicine; Visit Provider Family Medicine
DX: E11.3293 Type 2 diabetes mellitus with mild nonproliferative diabetic retinopathy without macular edema, bilateral (principal)
CPT/HCPCS: 36415; 80048; 80061; 80076; 82043; 82306; 82570; 83036; 84439; 84443; 85027

== ENCOUNTER 2025-10-05 09:51 | Outpatient (REF) | payer OTHER, SELFPAY ==
--- OUTSIDE RECORDS SUMMARY | 2025-10-04 11:15 | XMS_ITS | Encounter Summary ---
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, without long-term current use of insulin, macular edema presence unspecified (HCC); Encounter for immunization Social History Tobacco Use Types Packs/Day Years Used Date Smoking Tobacco: Never Passive Smoke Exposure: Never Smokeless Tobacco: Never Alcohol Use Standard Drinks/Week Comments Never 0 (1 standard drink = 0.6 oz pur e alcohol) Depression Answer Date Recorded Patient Health Questionnaire-9 Score 3 10/04/2025 Patient Health Questionnaire-9 Score 3 10/04/2025 Last PHQ-9: Questionnaire Data Not on file 1 12/04/2024 Housing Stability Answer Date Recorded What is [...] Date Recorded Patient Health Questionnaire-2 Score 0 10/04/2025 Internet Access Answer Date Recorded Internet Access [...] Sign Reading Time Taken Comments Blood Pressure 132/60 10/04/2025 11:23 AM EST Pulse 64 10/04/2025 11:23 AM EST Temperature 36.8 C (98.3 F) 10/04/2025 11:23 AM EST Respiratory Rate 20 10/04/2025 11:23 AM EST Oxygen Saturation 98% 10/04/2025 11:23 AM EST Inhaled Oxygen Concentration - - Weight 73.9 kg (163 lb) 10/04/2025 11:23 AM EST Height 162.6 cm (5' 4 ) 10/04/2025 11:23 AM EST Body Mass Index 27.98 10/04/2025 11:23 AM EST documented in this encounter Functional Status * Over the past 2 weeks, how often have you been bothered by any of the following problems? Question Answer Date of Assessment Author Patient Health Questionnaire -2 Score 0 10/04/2025 2:07 PM EST Jojo Velez MA * Little interest or pleasure in doing things Answer Date of Assessment Author Not at all 10/04/2025 2:07 PM EST Vane Velez MA * Feeling down, depressed, or hopeless Answer Date of Assessment Author Not at all 10/04/2025 2:07 PM Vane Marquis MA * Trouble falling or staying asleep, or sleeping too much Answer Date of Assessment Author Not at all 10/04/2025 2:07 PM Vane Marquis MA * Feeling tired or having little energy Answer Date of Assessment Author Not at all 10/04/2025 2:07 PM Vane Marquis MA * Poor appetite or overeating Answer Date of Assessment Author Not at all 10/04/2025 2:07 PM Vane Marquis MA * Feeling bad about yourself - or that you are a failure or have let yourself or your family down Answer Date of Assessment Author Not at all 10/04/2025 2:07 PM Vane Marquis MA * Trouble concentrating on things, such as reading the newspaper or watching television Answer Date of Assessment Author Not at all 10/04/2025 2:07 PM Vane Marquis MA * Moving or speaking so slowly that other people could have noticed? Or the opposite - being so fidgety or restless that you have been moving around a lot more than usual. Answer Date of Assessment Author Nearly every day 10/04/2025 2:07 PM Jojo Marquis MA * Thoughts that you would be better off or hurting yourself in some way Answer Date of Assessment Author Not at all 10/04/2025 2:07 PM Vane Marquis MA * Patient Health Questionnaire-9 Score Answer Date of Assessment Author 3 10/04/2025 2:07 PM Vane Marquis MA * Over the last 2 weeks, how often have you been bothered by any of the following problems? Question Answer Date of Assessment Author Feeling nervous, anxious, or on edge 0 10/04/2025 2:06 PM Jojo Marquis MA Not being able to stop or co ntrol worrying 0 10/04/2025 2:06 PM Jojo Marquis MA Worrying too much about diff erent things 0 10/04/2025 2:06 PM Jojo Marquis MA Trouble relaxing 0 10/04/2025 2:06 PM EST Jojo Marte MA Being so restless that it is hard to sit still 0 10/04/2025 2:06 PM Jojo Marquis MA Becoming easily annoyed or irritable 0 10/04/2025 2:06 PM Jojo Marquis MA Feeling afraid as if somethi ng awful might happen 0 10/04/2025 2:06 PM Jojo Marquis MA ABHIJIT-7 Total Score 0 10/04/2025 2:06 PM Jojo Marquis MA * How difficult have these problems made it for you to do your work, take care of things at home, or get along with other people? Answer Date of Assessment Author Not difficult at all 10/04/2025 2:07 PM Jojo Hyatt MA documented as of this encounter Plan of Treatment Not on file documented as of this encounter Goals Goal Patient Goal Type Associated Problems Recent Progress Patient-Stated? Author Help patients manage their type 2 diabetes Care Plan Help patients manage their type 2 diabetes Jojo Erickson MA Weekly blood pressure task Care Plan Weekly blood pressure task No Jojo Velez MA Help patients manage their type 2 diabetes Care Plan Help patients manage their type 2 diabetes No Jojo Velez MA Patient has diabetic eye disease Care Plan Patient has diabetic eye disease No Jojo Velez MA Help patients manage their type 2 diabetes Care Plan Help patients manage their type 2 diabetes No Jojo Velez MA Patient has chronic kidney disease Care Plan Patient has chronic kidney disease Jojo Erickson MA Weekly blood pressure task Care Plan Weekly blood pressure task No Jojo Velez MA Weekly blood pressure task Care Plan Weekly blood pressure task No Jojo Velez MA Patient has diabetic eye disease Care Plan Patient has diabetic eye disease Jojo Erickson MA Patient has diabetic eye disease Care Plan Patient has diabetic eye disease No Jojo Velez MA Patient has chronic kidney disease Care Plan Patient has chronic kidney disease No Jojo Velez MA Patient has chronic kidney disease Care Plan Patient has chronic kidney disease No Jojo Velez MA Weekly blood pressure task Care Plan Weekly blood pressure task No Jojo Velez MA Weekly blood pressure task Care Plan Weekly blood pressure task No Jojo Velez MA Weekly blood pressure task Care Plan Weekly blood pressure task No Jojo Velez MA Patient has diabetic eye disease Care Plan Patient has diabetic eye disease No Jojo Velez MA Patient has diabetic eye disease Care Plan Patient has diabetic eye disease No Jojo Velez MA Patient has diabetic eye disease Care Plan Patient has diabetic eye disease No Jojo Velez MA Patient has chronic kidney disease Care Plan Patient has chronic kidney disease No Jojo Velez MA Patient has chronic kidney disease Care Plan Patient has chronic kidney disease No Jojo Velez MA Patient has chronic kidney disease Care Plan Patient has chronic kidney disease No Jojo Velez MA documented as of this encounter Procedures Procedure Name Priority Date/Time Associated Diagnosis Comments XR SACRUM COCCYX 2+ VIEWS Routine 10/05/2025 10:23 AM EST Acute coccygeal pain XR LUMBAR SPINE 2-3 VIEWS Routine 10/05/2025 10:20 AM EST Acute coccygeal pain VITAMIN D,25-OH,TOTAL,IA Routine 10/04/2025 12:16 PM EST 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, without long-term current use of insulin, macular edema presence unspecified (HCC) ALBUMIN, RANDOM URINE W/CREATININE Routine 10/04/2025 12:16 PM EST 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, without long-term current use of insulin, macular edema presence unspecified (HCC) CBC Routine 10/04/2025 12:16 PM EST 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, without long-term current use of insulin, macular edema presence unspecified (HCC) TSH Routine 10/04/2025 12:16 PM EST 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, without long-term current use of insulin, macular edema presence unspecified (HCC) T4, FREE Routine 10/04/2025 12:16 PM EST 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, without long-term current use of insulin, macular edema presence unspecified (HCC) HEMOGLOBIN A1C Routine 10/04/2025 12:16 PM EST 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, without long-term current use of insulin, macular edema presence unspecified (HCC) HEPATIC FUNCTION PANEL Routine 10/04/2025 12:16 PM EST 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, without long-term current use of insulin, macular edema presence unspecified (HCC) LIPID PANEL, STANDARD Routine 10/04/2025 12:16 PM EST 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, without long-term current use of insulin, macular edema presence unspecified (HCC) BASIC METABOLIC PANEL Routine 10/04/2025 12:16 PM EST 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, without long-term current use of insulin, macular edema presence unspecified (HCC) POCT GLYCATED HEMOGLOBIN, TOTAL Routine 10/04/2025 11:29 AM EST 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, without long-term current use of insulin, macular edema presence unspecified (HCC) POCT GLUCOSE Routine 10/04/2025 11:29 AM EST 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, without long-term current use of insulin, macular edema presence unspecified (HCC) documented in this encounter Results * XR Sacrum Coccyx 2+ Views (10/05/2025 10:23 AM EST) Anatomical Region Laterality Modality Sacrum, Coccyx Radiographic Elsie ging 10/05/2025 10:2 3 AM EST Narrative 10/05/2025 10:53 AM EST [address] [address] XRay Report Signed Patient: Toi Elise MR#: [id number] : 1960 Acct:[id number] Age/Sex: 64 / M ADM Date: 10/05/25 Loc: FRED[facility] Attending Dr: Mariya Patel DO Ordering Physician: Mariya Patel DO Date of Service: 10/05/25 Procedure(s): XR sacrum coccyx min 2V Accession Number(s): [id number] cc: Mariya Patel DO Reason for Exam: PAIN EXAMINATION: XR SACRUM AND COCCYX CLINICAL INFORMATION: PAIN COMPARISON: None available. TECHNIQUE: 2 views of the sacrum and 2 views of the coccyx were obtained. FINDINGS: Bowel content and additional structures overlying the sacrum/coccyx on the frontal view partially limits evaluation. No displaced fractures. Sacroiliac joints are intact. XR/XR sacrum coccyx min 2V IMPRESSION: No displaced fracture. Electronically signed by: Eula Rios MD 10/05/2025 10:51 AM EST Dictated By: Eula Rios MD Signed By: <Electronically signed by Eula Rios MD in OV> 10/05/25 1051 DD/ 1023 TD/TT: 10/05/25 1028 Business Education Professor: Procedure Note Donnickinterpreter, Image - 10/05/[address] [address] XRay Report Signed Patient: Toi EliseMR#: [id number] : 1960Acct:[id number] Age/Sex: 64 / MADM Date: 10/05/25 Loc: FRED[facility] Attending Dr: Mariya Patel DO Ordering Physician: Mariya Patel DO Date of Service: 10/05/25 Procedure(s): XR sacrum coccyx min 2V Accession Number(s): [id number] cc: Mariya Patel DO Reason for Exam: PAIN EXAMINATION: XR SACRUM AND COCCYX CLINICAL INFORMATION: PAIN COMPARISON: None available. TECHNIQUE: 2 views of the sacrum and 2 views of the coccyx were obtained. FINDINGS: Bowel content and additional structures overlying the sacrum/coccyx on the frontal view partially limits evaluation. No displaced fractures. Sacroiliac joints are intact. XR/XR sacrum coccyx min 2V IMPRESSION: No displaced fracture. Electronically signed by: Eula Rios MD 10/05/2025 10:51 AM EST Dictated By: Eula Rios MD Signed By: <Electronically signed by Eula Rios MD in OV> 10/05/25 1051 DD/ 1023 TD/TT: 10/05/25 1028 Business Education Professor: Mariya Patel DO IMG XR PROCEDURES Final Resu lt * XR Lumbar Spine 2-3 Views (10/05/2025 10:20 AM EST) Anatomical Region Laterality Modality Spine, L-spine Radiographic Elsie ging 10/05/2025 10:2 0 AM EST Narrative 10/05/2025 10:55 AM EST [address] [address] XRay Report Signed Patient: Toi Elise MR#: [id number] : 1960 Acct:[id number] Age/Sex: 64 / M ADM Date: 10/05/25 Loc: HO.HHCX Attending Dr: Mariya Patel DO Ordering Physician: Mariya Patel DO Date of Service: 10/05/25 Procedure(s): XR lumbar spine 2-3V Accession Number(s): [id number] cc: Mariya Patel DO Reason for Exam: PAIN EXAMINATION: XR LUMBOSACRAL SPINE CLINICAL INFORMATION: PAIN COMPARISON: None available. TECHNIQUE: Three views of the lumbosacral spine. FINDINGS: Grade 1 anterolisthesis of L4 on L5. Vertebral body heights are maintained. Marginal osteophytes at multiple levels. Facet arthropathy is more prominent at L4-L5 and L5-S1. Vascular calcifications. XR/XR lumbar spine 2-3V IMPRESSION: Multilevel degenerative changes, more prominent in the lower lumbar spine. Electronically signed by: Eula Rios MD 10/05/2025 10:53 AM EST RP Dictated By: Eula Rios MD Signed By: <Electronically signed by Eula Rios MD in OV> 10/05/25 1053 DD/ 1020 TD/TT: 10/05/25 1028 Business Education Professor: Procedure Note Donotuseinterpreter, Image - 10/05/[address] [address] XRay Report Signed Patient: Toi EliseMR#: [id number] : 1960Acct:[id number] Age/Sex: 64 / MADM Date: 10/05/25 Loc: HO.HHCX Attending Dr: Mariya Patel DO Ordering Physician: Mariya Patel DO Date of Service: 10/05/25 Procedure(s): XR lumbar spine 2-3V Accession Number(s): [id number] cc: Mariya Patel DO Reason for Exam: PAIN EXAMINATION: XR LUMBOSACRAL SPINE CLINICAL INFORMATION: PAIN COMPARISON: None available. TECHNIQUE: Three views of the lumbosacral spine. FINDINGS: Grade 1 anterolisthesis of L4 on L5. Vertebral body heights are maintained. Marginal osteophytes at multiple levels. Facet arthropathy is more prominent at L4-L5 and L5-S1. Vascular calcifications. XR/XR lumbar spine 2-3V IMPRESSION: Multilevel degenerative changes, more prominent in the lower lumbar spine. Electronically signed by: Eula Rios MD 10/05/2025 10:53 AM EST RP Dictated By: Eula Rios MD Signed By: <Electronically signed by Eula Rios MD in OV> 10/05/25 1053 DD/ 1020 TD/TT: 10/05/25 1028 Business Education Professor: us Mariya Patel DO IMG XR PROCEDURES Final Resu lt * Albumin, Random Urine W/Creatinine (10/04/2025 12:16 PM EST) Creatinine, Urine 55.81 mg/dL [facility] Microalbumin Urine 6.0 mg/L [facility] Microalbum Creatinine Ratio Ur 10.7 <30 ug/mg cr [facility] Comment:Albumin/Creatinine R atio Reference Ranges: Normal: < 30 ug/mg creatinine Microalbuminuria: 30 - 300 ug/mg creatinineClinical Albuminuria: > 300 ug/mg creatinine Urine (Urine, Random) 10/04/2025 12:16 PM EST 10/04/2025 1:00 PM EST us Mariya Patel DO LAB URINE ORDERABLES Final R esult [facility] [address] [place] [phone] * CBC (10/04/2025 12:16 PM EST) White Blood Count 9.9 4.8 - 10.8 X10*3/uL [facility] Red Blood Count 4.83 4.60 - 5.80 X10*6/uL [facility] Hemoglobin 14.7 14.0 - 18.0 g/dl [facility] Hematocrit 44.6 42.0 - 52.0 % [facility] Mean Corpuscular Volume 92.3 80.0 - 98.0 fL [facility] Mean Corpuscular Hemoglobin 30.4 27.0 - 33.0 pg [facility] Mean Corpuscular HGB Conc 33.0 31.0 - 36.0 g/dl [facility] Red Cell Distribution Width 12.2 11.0 - 16.0 % [facility] Platelet Count 222 160 - 400 X10*3/uL [facility] Mean Platelet Volume 11.1 9.4 - 12.4 fL [facility] NRBC Pct Auto 0.0 0.0 - 0.2 /100WBC [facility] NRBC Abs Auto 0.000 0.0 - 0.012 X10*3/uL [facility] Blood Venous blood specimen / Unknown 10/04/2025 12:16 PM EST 10/04/2025 1:23 PM EST Mariya Patel DO LAB BLOOD ORDERABLES Final R esult [facility] [address] [place] [phone] * (ABNORMAL) Basic Metabolic Panel (10/04/2025 12:16 PM EST) Sodium 142 135 - 145 mmol/L [facility] Potassium 4.5 3.3 - 5.1 mmol/L [facility] Chloride 106 96 - 108 mmol/L [facility] Carbon Dioxide 31(H) 22 - 29 mmol/L [facility] Anion Gap 10(L) 12 - 20 [facility] Urea Nitrogen (BUN) 16 9 - 16 mg/dL [facility] Creatinine, Serum 0.91 0.5 - 1.4 mg/dL [facility] Estimated Glomerular Filt Rate >60 [facility] Comment:Chronic Kidney Disea se: Estimated GFR < 60 mL/min/1.39f9Mwkibp Kidney Disease: Estimated GFR < 15 mL/min/1.73m2 Glucose 121(H) 60 - 115 mg/dL [facility] Calcium 9.5 8.4 - 10.2 mg/dL [facility] Blood Venous blood specimen / Unknown 10/04/2025 12:16 PM EST 10/04/2025 1:23 PM EST Mariya Patel DO LAB BLOOD ORDERABLES Final R esult [facility] [address] [place] [phone] * (ABNORMAL) Hemoglobin A1c (10/04/2025 12:16 PM EST) Hemoglobin A1c 7.3(H) <6.0 % [facility] Comment:Hemoglobin A1C Refer ence Range Adults: 4.8 - 6.0 % Non diabetic: < 6.0 % Goal: < 7.0 %Additional Action Suggested: > 8.0 %Note: Hemoglobin A1c results are invalid for patients with abnormal amounts of HbF. Blood transfusions may impact the HbA1c concentration in the patient sample. Estimated Average Glucose 163 mg/dL [facility] Comment:eAG = Estimated ave rage glucose which is %A1C expressed asaverage glucose, using the formula of the I3W-[id number] Glucose study (ADAG), Diabetes Care, Vol.31,#8,2007 Blood Venous blood specimen / Unknown 10/04/2025 12:16 PM EST 10/04/2025 1:23 PM EST us Mariya Patel DO LAB BLOOD ORDERABLES Final R esult Performing Organization Address [facility] Co de Phone Number [facility] [address] [place] [phone] * Hepatic Function Panel (10/04/2025 12:16 PM EST) Bilirubin, Total 0.5 0.0 - 1.0 mg/dL [facility] Bilirubin, Direct 0.2 0.0 - 0.5 mg/dL [facility] Aspartate Amino Transferase 26 5 - 37 U/L [facility] Alanine Aminotransferase 22 0 - 40 U/L [facility] Total Protein 7.1 6.5 - 8.0 g/dL [facility] Albumin Level 4.7 3.5 - 5.0 g/dL [facility] Alkaline Phosphatase 83 39 - 117 U/L [facility] Blood Venous blood specimen / Unknown 10/04/2025 12:16 PM EST 10/04/2025 1:23 PM EST Mariya Jorge DO LAB BLOOD ORDERABLES Final R esult Performing Organization Address [facility] Co de Phone Number [facility] [address] [place] [phone] * TSH (10/04/2025 12:16 PM EST) Thyroid Stimulating Hormone 1.60 0.32 - 4.0 uIU/mL [facility] Comment:TSH 3rd Generation ( [facility]) Blood Venous blood specimen / Unknown 10/04/2025 12:16 PM EST 10/04/2025 1:23 PM EST Mariya Jorge LAB BLOOD ORDERABLES Final R esult Performing Organization Address [facility] Co de Phone Number [facility] [address] [place] [phone] * Lipid Panel, Standard (10/04/2025 12:16 PM EST) Triglycerides 93 <150 mg/dL [facility] Comment:Desirable Triglyceri de: less than 150 mg/dLBorderline High Triglyceride 150-199 mg/dLHigh Triglyceride: 200-499 mg/dLVery High Triglyceride: greater than or equal to 5OO mg/dL Cholesterol 115 <200 mg/dL [facility] Comment:Desirable Cholestero l: less than 200 mg/dLBorderline High Cholesterol: 200-239 mg/dLHigh Cholesterol: greater than 239 mg/dL LDL Cholesterol Calculated 49 <100 mg/dL [facility] Comment:Desirable LDL: less than 100 mg/dLNear Optimal/Above Optimal LDL: 110- 129 mg/dLBorderline High LDL: 130-159 mg/dLHigh LDL: 160-189 mg/dLVery High LDL: greater than or equal to 190 mg/dL HDL Cholesterol 48 >40 mg/dL [facility] Comment:Desirable HDL: great er than 40 mg/dL Note: This HDL assay may give artificially low results in patients with liver disease. Blood Venous blood specimen / Unknown 10/04/2025 12:16 PM EST 10/04/2025 1:23 PM EST Mariya Patel LAB BLOOD ORDERABLES Final R esult Performing Organization Address City/[facility]/ZIP Co de Phone Number [facility] [address] [place] [phone] * (ABNORMAL) Vitamin D, 25-Hydroxy, Total, Immunoassay (10/04/2025 12:16 PM EST) Vitamin D 25-OH Total 13.7(L) >30 ng/mL [facility] Comment: Health Based Reference Values*< 20 ng/mL Kdrgzvumn27-30 ng/mL Insufficient> 30 ng/mL Sufficient*Remy ORR. N Engl J Med. 2007;357:266-280There is no well-established upper level of normal vitamin Dlevels. Some laboratories use 50 ng/mL as an upper limit ofnormal. However, toxicity is patient-dependent and may occurat any level. Careful correlation with the patient'spresentation is necessary and, if there is concern forvitamin D toxicity, treatment should be consideredirrespective of the serum level.Care must be taken in interpreting Vitamin D results fromdifferent laboratories and methodologies. Published datademonstrated that results from patients undergoinghemodialysis may show a negative bias when tested withvarious automated 25-OH vitamin D assays when compared toLC-MS/MS.When testing samples from patients whose predominant form ofVitamin D is Vitamin D2, such as patients receiving VitaminD2 supplementation, results that are subtherapeutic shouldbe confirmed with another method such as LC-MS/MS. Blood Venous blood specimen / Unknown 10/04/2025 12:16 PM EST 10/04/2025 1:23 PM EST Mariya Patel LAB BLOOD ORDERABLES Final R esult Performing Organization Address [facility] Co de Phone Number [facility] [address] [place] [phone] * T4, Free (10/04/2025 12:16 PM EST) Free T4 (Free Thyroxine) 1.05 0.71 - 1.85 ng/dL [facility] Blood Venous blood specimen / Unknown 10/04/2025 12:16 PM EST 10/04/2025 1:23 PM EST Mariya Patel DO LAB BLOOD ORDERABLES Final R esult [facility] [address] [place] [phone] * (ABNORMAL) POCT Hgb A1c (10/04/2025 11:29 AM EST) Hemoglobin A1C 7.2(A) 4.0 - 5.7 % QC [employer] Lot # [id number] Lot# Expiration Date Blood 10/04/2025 11:2 9 AM EST Mariya Patel DO POINT OF CARE TEST ENTER/INDIGO T ORDERABLES Final Result * POCT Glucose (10/04/2025 11:29 AM EST) Glucose Blood, POC 190 60 - 200 mg/dL [facility] [employer] Lot # [id number] Lot# Expiration Date Blood Capillary blood specimen / Unknown 10/04/2025 11:29 AM EST Mariya Patel DO POINT OF CARE TEST ENTER/INDIGO T ORDERABLES Final Result documented in this encounter Visit Diagnoses Diagnosis Acute coccygeal pain- Primary 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, without long-term current use of insulin, macular edema presence unspecified (HCC) Encounter for immunization documented in this encounter Additional Health Concerns Active Problems Noted Date Diagnosed Date Help patients manage their type 2 diabetes 10/01 Weekly blood pressure task 10/01/2025 Help patients manage their type 2 diabetes 10/01 Patient has diabetic eye disease 10/01/2025 Help patients manage their type 2 diabetes 10/01 Patient has chronic kidney disease 10/01/2025 Weekly blood pressure task 10/01/2025 Weekly blood pressure task 10/01/2025 Patient has diabetic eye disease 10/01/2025 Patient has diabetic eye disease 10/01/2025 Patient has chronic kidney disease 10/01/2025 Patient has chronic kidney disease 10/01/2025 Weekly blood pressure task 10/04/2025 Weekly blood pressure task 10/04/2025 Weekly blood pressure task 10/04/2025 Patient has diabetic eye disease 10/04/2025 Patient has diabetic eye disease 10/04/2025 Patient has diabetic eye disease 10/04/2025 Patient has chronic kidney disease 10/04/2025 Patient has chronic kidney disease 10/04/2025 Patient has chronic kidney disease 10/04/2025 Assessment Noted Time PHQ-9 Depression Total Score: 3 10/04/20 25 2:07 PM EST documented as of this encounter Care Teams Jewelry Sales Associate Relationship Specialty Start Date End Date Mariya Patel DO [address] [place] [phone] PCP - General Family Medicine 04/21/20 documented as of this encounter
--- NOTE | ~2025-10-05 | XR_ITS ---
EXAMINATION: XR LUMBOSACRAL SPINE CLINICAL INFORMATION: PAIN COMPARISON: None available. TECHNIQUE: Three views of the lumbosacral spine. FINDINGS: Grade 1 anterolisthesis of L4 on L5. Vertebral body heights are maintained. Marginal osteophytes at multiple levels. Facet arthropathy is more prominent at L4-L5 and L5-S1. Vascular calcifications. XR/XR lumbar spine 2-3V IMPRESSION: Multilevel degenerative changes, more prominent in the lower lumbar spine. Electronically signed by: Eula Rios MD 10/05/2025 10:53 AM [facility]
--- NOTE | ~2025-10-05 | XR_ITS ---
EXAMINATION: XR SACRUM AND COCCYX CLINICAL INFORMATION: PAIN COMPARISON: None available. TECHNIQUE: 2 views of the sacrum and 2 views of the coccyx were obtained. FINDINGS: Bowel content and additional structures overlying the sacrum/coccyx on the frontal view partially limits evaluation. No displaced fractures. Sacroiliac joints are intact. XR/XR sacrum coccyx min 2V IMPRESSION: No displaced fracture. Electronically signed by: Eula Rios MD 10/05/2025 10:51 AM [facility]
--- OUTSIDE RECORDS SUMMARY | 2025-10-05 11:26 | XMS_ITS | Encounter Summary ---
Author Organization [employer] Address 75 [facility] 7t [place] [address] Care Team Providers Care Back Sewer Name Role Phone Jorge Mariya Primary Care Provider [phone] Reason for Visit * Reason Onset Date Comments Appointment 07/31/2023 Toi rooney 1960 Patient stated he was seen on 07/29/2023 for SRP and also stated doctor came into room and stated he needed an antibiotic for a cyst but prescription has not been sent to pharmacy please advise Encounter Details Date Type Department Care Team (Late st Contact Info) Description 07/31/2023 Telephone [facility] ADULT DENTAL 230 [place] [address] Sy Avila DMD [address] [place] [address] Appointment (Toi Browningiago 1960 Patient stated he [...] documented as of this encounter Care Teams Back Sewer Relationship Specialty Start Date End Date Mariya Patel DO 230 [place] [address] PCP - General Family Medicine 04/21/20 documented as of this encounter
--- OUTSIDE RECORDS SUMMARY | 2025-10-05 11:26 | XMS_ITS | Encounter Summary ---
Author Organization [employer] Address 75 [facility] 7t [place] [address] Care Team Providers Care Mapping Analyst Name Role Phone Mariya Patel DO Primary Care Provider + [phone] Encounter Details Date Type Department Care Team (Late st Contact Info) Description 02/26/[address] [facility] ADULT DENTAL 230 [place] [address] Sy Avila DMD [address] [place] [address] Social History Tobacco Use Types Packs/Day Years [...] documented as of this encounter Care Teams Mapping Analyst Relationship Specialty Start Date End Date Mariya Patel DO 230 [place] [address] PCP - General Family Medicine 04/21/20 documented as of this encounter
--- OUTSIDE RECORDS SUMMARY | 2025-10-05 11:26 | XMS_ITS | Encounter Summary ---
Author Organization [employer] Address 75 [facility] 7t h Floor [address] Care Team Providers Care Landfill Grader Name Role Phone Mariya Patel DO Primary Care Provider + [phone] Reason for Visit * Reason Onset Date Comments Med Refill 12/11/2023 Encounter Details Date Type Department Care Team (Late st Contact Info) Description 12/11/2023 Refill [facility] MED & PEDS [address] [place], [place] [phone] Mariya Patel DO 230 [place], [place] [phone] Social History Tobacco Use Types Packs/Day Years [...] documented as of this encounter Care Teams Landfill Grader Relationship Specialty Start Date End Date Mariya Patel DO [address] [place] [address] PCP - General Family Medicine 04/21/20 documented as of this encounter
--- OUTSIDE RECORDS SUMMARY | 2025-10-05 11:26 | XMS_ITS | Encounter Summary ---
Author Organization [employer] Address 75 [facility] 7t [place] [address] Care Team Providers Care Flatwork Catcher Name Role Phone Mariya Patel DO Primary Care Provider + [phone] Reason for Visit * Reason Onset Date Comments Med Refill 12/30/2023 Encounter Details Date Type Department Care Team (Late st Contact Info) Description 12/30/2023 Refill [facility] MED & PEDS [address] [place] [address] Mariya Patel DO 230 [place], [place] [phone] Social History Tobacco Use Types Packs/Day Years [...] documented as of this encounter Care Teams Flatwork Catcher Relationship Specialty Start Date End Date Mariya Patel DO [address] [place] [address] PCP - General Family Medicine 04/21/20 documented as of this encounter
--- OUTSIDE RECORDS SUMMARY | 2025-10-05 11:26 | XMS_ITS | Encounter Summary ---
Author Organization [employer] Address 75 [facility] 7t [place] [address] Care Team Providers Care Director Risk Name Role Phone TonyMariya bauer Primary Care Provider + [phone] Encounter Details Date Type Department Care Team [...] documented as of this encounter Care Teams Director Risk Relationship Specialty Start Date End Date Mariya Patel DO [address] [place] [address] PCP - General Family Medicine 04/21/20 documented as of this encounter
--- OUTSIDE RECORDS SUMMARY | 2025-10-05 11:26 | XMS_ITS | Encounter Summary ---
Author Organization [employer] Address 75 [facility] 7t [place] [address] Care Team Providers Care Safety Companion Name Role Phone Mariya Patel DO Primary Care Provider + [phone] Encounter Details Date Type Department Care Team (Late st Contact Info) Description 02/26/2023 Abstract [facility] ADULT DENTAL [address] [place] [address] Sy Avila DMD [address] [place] [address] Social History Tobacco Use Types Packs/Day Years [...] documented as of this encounter Care Teams Safety Companion Relationship Specialty Start Date End Date Mariya Patel DO [address] [place] [address] PCP - General Family Medicine 04/21/20 documented as of this encounter
--- OUTSIDE RECORDS SUMMARY | 2025-10-05 11:26 | XMS_ITS | Encounter Summary ---
Author Organization [employer] Address 75 [facility] 7t [place] [address] Care Team Providers Care Political Science Professor Name Role Phone Mariya Patel DO Primary Care Provider + [phone] Encounter Details Date Type Department Care Team (Late st Contact Info) Description 05/05/2023 Abstract [facility] ADULT DENTAL 230 [place] [address] Sy Avila DMD [address] [place] [address] Social History Tobacco Use Types Packs/Day Years [...] documented as of this encounter Care Teams Political Science Professor Relationship Specialty Start Date End Date Mariya Patel DO 230 [place] [address] PCP - General Family Medicine 04/21/20 documented as of this encounter
--- OUTSIDE RECORDS SUMMARY | 2025-10-05 11:26 | XMS_ITS | Encounter Summary ---
Author Organization [employer] Address 75 [facility] [address] [address] Care Team Providers Care Velocity Shooter Name Role Phone Mariya Patel DO Primary Care Provider [phone] Encounter Details Date Type Department Care Team (Late st Contact Info) Description 12/27/2022 Abstract [facility] ADULT DENTAL [address] [place], [place] [phone] Chepe De La Fuente DDS [address] [place], [place] [phone] Social History Tobacco Use Types Packs/Day Years [...] on filedocumented in this encounter Care Teams Velocity Shooter Relationship Specialty Start Date End Date Mariya Patel DO 230 [place], [place] [phone] PCP - General Family Medicine 04/21/20 documented as of this encounter
--- OUTSIDE RECORDS SUMMARY | 2025-10-05 11:26 | XMS_ITS | Encounter Summary ---
Author Organization [employer] Address 75 [facility] 7t [place] [address] Care Team Providers Care Installer Technician Name Role Phone Mariya Patel DO Primary Care Provider + [phone] Reason for Visit * Reason Onset Date Comments Med Refill 10/04/2025 Encounter Details Date Type Department Care Team (Late st Contact Info) Description 10/04/2025 Refill [facility] MEDICINE 230 [place], [place] [phone] Mariya Patel DO 230 [place], [place] [phone] Male erectile dysfunction, unspecified Social History Tobacco [...] documented as of this encounter Care Teams Installer Technician Relationship Specialty Start Date End Date Mariya Patel DO [address] [place] [address] PCP - General Family Medicine 04/21/20 documented as of this encounter
--- OUTSIDE RECORDS SUMMARY | 2025-10-05 11:26 | XMS_ITS | Encounter Summary ---
Author Organization [employer] Address 75 [facility] 7t [place] [address] Care Team Providers Care Director Of Content And Programming Name Role Phone Mariya Patel DO Primary Care Provider + [phone] Reason for Visit * Reason Onset Date Comments Med Refill 03/01/2025 Encounter Details Date Type Department Care Team (Late st Contact Info) Description 03/01/2025 Refill [facility] MEDICINE 230 [place], [place] [phone] Mariya Patel DO 230 [place], [place] [phone] Male erectile dysfunction, unspecified Social History Tobacco [...] as of this encounter Care Teams Director Of Content And Programming Relationship Specialty Start Date End Date Mariya Patel DO [address] [place] [address] PCP - General Family Medicine 04/21/20 documented as of this encounter
--- OUTSIDE RECORDS SUMMARY | 2025-10-05 11:26 | XMS_ITS | Clinical Summary ---
Author Organization [employer] Address [address] [facility] 7t [place] [address] Care Team Providers Care Marine Pipefitter Helper Name Role Phone JorgeMariya Primary Care Provider + [phone] Allergies No known active allergies Medications cholecalciferol [...] kit 024 Active Lancets (OneTouch Delica Plus [id number]) misc 1 each 4 times daily. 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, without long-term current use of insulin, macular edema presence unspecified (HCC); Encounter for immunization 10/04/2025 Refill [facility] [address] [place] [address] Mariya Patel DO Male erectile dysfunction, unspecified 10/04/2025 Travel 10/01/2025 Telephone [facility] [address] [place] [address] Mariya Patel DO Chart Prep 07/27/2025 Refill [facility] [address] [place] [address] Mariya Patel DO from Last 3 Months [...] 10/05/2025 10:20 AM EST Acute coccygeal pain ALBUMIN, RANDOM URINE W/CREATININE Routine 10/04/2025 12:16 [...] Relevant to Health Maintenance Results * XR Sacrum Coccyx 2+ Views (10/05/2025 10:23 AM EST) Anatomical Region Laterality Modality Sacrum, Coccyx Radiographic Elsie ging 10/05/2025 10:2 3 AM EST Narrative 10/05/2025 10:53 AM EST [address] [address] XRay Report Signed Patient: Toi Elise MR#: [id number] : 1960 Acct:[id number] Age/Sex: 64 / M ADM Date: 10/05/25 Loc: .HHCX Attending Dr: Mariya Patel DO Ordering Physician: Mariya Patel DO Date of Service: 10/05/25 Procedure(s): XR sacrum coccyx min 2V Accession Number(s): [id number] cc: Mariya Patel DO Reason for Exam: [...] 10/05/25 1051 DD/ 1023 TD/TT: 10/05/25 1028 Dock Operator: Procedure Note Donotuseinterpreter, Image - 10/05/[address] [address] XRay Report Signed Patient: Tio EliseMR#: [id number] : 1960Acct:[id number] Age/Sex: 64 / MADM Date: 10/05/25 Loc: HO.HHCX Attending Dr: Mariya Patel DO Ordering Physician: Mariya Patel DO Date of Service: 10/05/25 Procedure(s): XR sacrum coccyx min 2V Accession Number(s): [id number] cc: Mariya Patel DO Reason for Exam: [...] 10/05/25 1051 DD/ 1023 TD/TT: 10/05/25 1028 Dock Operator: Mariya Patel DO IMG XR PROCEDURES Final Resu lt * XR Lumbar Spine 2-3 Views (10/05/2025 10:20 AM EST) Anatomical Region Laterality Modality Spine, L-spine Radiographic Elsie ging 10/05/2025 10:2 0 AM EST Narrative 10/05/2025 10:55 AM EST [address] [address] XRay Report Signed Patient: Toi Elise MR#: [id number] : 1960 Acct:[id number] Age/Sex: 64 / M ADM Date: 10/05/25 Loc: FREDDY Attending Dr: Mariya Patel DO Ordering Physician: Mariya Patel DO Date of Service: 10/05/25 Procedure(s): XR lumbar spine 2-3V Accession Number(s): [id number] cc: Mariya Patel DO Reason for Exam: [...] Eula Rios MD 10/05/2025 10:53 AM EST Dictated By: Eula Rios MD Signed By: <Electronically signed by Eula Rios MD in OV> 10/05/25 1053 DD/ 1020 TD/TT: 10/05/25 1028 Dock Operator: Procedure Note Donotuseinterpreter, Image - 10/05/[address] [address] XRay Report Signed Patient: Toi EliseMR#: [id number] : 1960Acct:[id number] Age/Sex: 64 / MADM Date: 10/05/25 Loc: FREDDY Attending Dr: Mariya Patel DO Ordering Physician: Mariya Patel DO Date of Service: 10/05/25 Procedure(s): XR lumbar spine 2-3V Accession Number(s): [id number] cc: Mariya Patel DO Reason for Exam: [...] Eula Rios MD 10/05/2025 10:53 AM EST Dictated By: Eula Rios MD Signed By: <Electronically signed by Eula Rios MD in OV> 10/05/25 1053 DD/ 1020 TD/TT: 10/05/25 1028 Dock Operator: Mariya Patel DO IMG XR PROCEDURES Final Resu lt * (ABNORMAL) Vitamin D, 25-Hydroxy, Total, Immunoassay (10/04/2025 12:16 PM EST) Vitamin D 25-OH Total 13.7(L) >30 ng/mL [facility] Comment: Health Based Reference Values*< 20 ng/mL Vipiosroa42-68 ng/mL Insufficient> 30 ng/mL Sufficient*Remy ORR. N [...] ORDERABLES Final R esult Performing Organization Address [facility] Co de Phone Number [facility] [address] [place] [phone] * Albumin, Random Urine W/Creatinine (10/04/2025 12:16 PM EST) Creatinine, Urine 55.81 mg/dL [facility] Microalbumin Urine 6.0 mg/L [facility] Microalbum Creatinine Ratio Ur 10.7 <30 ug/mg cr [facility] Comment:Albumin/Creatinine R atio Reference Ranges: Normal: < 30 ug/mg creatinine Microalbuminuria: 30 - 300 ug/mg creatinineClinical Albuminuria: > 300 ug/mg creatinine Urine (Urine, Random) 10/04/2025 12:16 PM EST 10/04/2025 1:00 PM EST Mariya Patel DO LAB URINE ORDERABLES Final R esult Performing Organization Address [facility] Co de Phone Number [facility] [address] [place] [phone] * CBC (10/04/2025 12:16 PM EST) White Blood Count 9.9 4.8 - 10.8 X10*3/uL [facility] Red Blood Count 4.83 4.60 - 5.80 X10*6/uL [facility] Hemoglobin 14.7 14.0 - 18.0 g/dl [facility] Hematocrit 44.6 42.0 - 52.0 % [facility] Mean Corpuscular Volume 92.3 80.0 - 98.0 fL [facility] Mean Corpuscular Hemoglobin 30.4 27.0 - 33.0 pg [facility] Mean Corpuscular HGB Conc 33.0 31.0 - 36.0 g/dl [facility] Red Cell Distribution Width 12.2 11.0 - 16.0 % [facility] Platelet Count 222 160 - 400 X10*3/uL [facility] Mean Platelet Volume 11.1 9.4 - 12.4 fL [facility] NRBC Pct Auto 0.0 0.0 - 0.2 /100WBC [facility] NRBC Abs Auto 0.000 0.0 - 0.012 X10*3/uL [facility] Blood Venous blood specimen / Unknown 10/04/2025 12:16 PM EST 10/04/2025 1:23 PM EST Mariya Patel DO LAB BLOOD ORDERABLES Final R esult Performing Organization Address City/[facility]/ZIP Co de Phone Number [facility] [address] [place] [phone] * TSH (10/04/2025 12:16 PM EST) Thyroid Stimulating Hormone 1.60 0.32 - 4.0 uIU/mL [facility] Comment:TSH 3rd Generation ( [employer]) Blood Venous blood specimen / Unknown 10/04/2025 12:16 PM EST 10/04/2025 1:23 PM EST Mariya Patel DO LAB BLOOD ORDERABLES Final R esult Performing Organization Address City/[facility]/ZIP Co de Phone Number [facility] [address] [place] [phone] * T4, Free (10/04/2025 12:16 PM EST) Free T4 (Free Thyroxine) 1.05 0.71 - 1.85 ng/dL [facility] Blood Venous blood specimen / Unknown 10/04/2025 12:16 PM EST 10/04/2025 1:23 PM EST Mariya Jorge LAB BLOOD ORDERABLES Final R esult Performing Organization Address [facility] Co de Phone Number [facility] [address] [place] [phone] * (ABNORMAL) Hemoglobin A1c (10/04/2025 12:16 PM EST) Hemoglobin A1c 7.3(H) <6.0 % [facility] Comment:Hemoglobin A1C Refer ence Range Adults: 4.8 - 6.0 % Non diabetic: < 6.0 % Goal: < 7.0 %Additional Action Suggested: > 8.0 %Note: Hemoglobin A1c results are invalid for patients with abnormal amounts of HbF. Blood transfusions may impact the HbA1c concentration in the patient sample. Estimated Average Glucose 163 mg/dL [facility] Comment:eAG = Estimated ave rage glucose which is %A1C expressed asaverage glucose, using the formula of the O0W-OhinvacZjugtxw Glucose study (ADAG), Diabetes Care, Vol.31,#8,2007 Blood Venous blood specimen / Unknown 10/04/2025 12:16 PM EST 10/04/2025 1:23 PM EST Mariya Patel DO LAB BLOOD ORDERABLES Final R esult Performing Organization Address City/[facility]/ZIP Co de Phone Number [facility] [address] [place] [phone] * Hepatic Function Panel (10/04/2025 12:16 PM EST) Bilirubin, Total 0.5 0.0 - 1.0 mg/dL [facility] Bilirubin, Direct 0.2 0.0 - 0.5 mg/dL [facility] Aspartate Amino Transferase 26 5 - 37 U/L [facility] Alanine Aminotransferase 22 0 - 40 U/L [facility] Total Protein 7.1 6.5 - 8.0 g/dL [facility] Albumin Level 4.7 3.5 - 5.0 g/dL [facility] Alkaline Phosphatase 83 39 - 117 U/L [facility] Blood Venous blood specimen / Unknown 10/04/2025 12:16 PM EST 10/04/2025 1:23 PM EST us Mariya Patel DO LAB BLOOD ORDERABLES Final R esult Performing Organization Address City/[facility]/ZIP Co de Phone Number [facility] [address] [place] [phone] * Lipid Panel, Standard (10/04/2025 12:16 PM EST) Triglycerides 93 <150 mg/dL [facility] Comment:Desirable Triglyceri de: less than 150 mg/dLBorderline High Triglyceride 150-199 mg/dLHigh Triglyceride: 200-499 mg/dLVery High Triglyceride: greater than or equal to 5OO mg/dL Cholesterol 115 <200 mg/dL [facility] Comment:Desirable Cholestero l: less than 200 mg/dLBorderline High Cholesterol: 200-239 mg/dLHigh Cholesterol: greater than 239 mg/dL LDL Cholesterol Calculated 49 <100 mg/dL [facility] Comment:Desirable LDL: less than 100 mg/dLNear Optimal/Above Optimal LDL: 110- 129 mg/dLBorderline High LDL: 130-159 mg/dLHigh LDL: 160-189 mg/dLVery High LDL: greater than or equal to 190 mg/dL HDL Cholesterol 48 >40 mg/dL [facility] Comment:Desirable HDL: great er than 40 mg/dL Note: This HDL assay may give artificially low results in patients with liver disease. Blood Venous blood specimen / Unknown 10/04/2025 12:16 PM EST 10/04/2025 1:23 PM EST us Mariya Patel DO LAB BLOOD ORDERABLES Final R esult Performing Organization Address City/[facility]/ZIP Co de Phone Number [facility] [address] [place] [phone] * (ABNORMAL) Basic Metabolic Panel (10/04/2025 12:16 PM EST) Sodium 142 135 - 145 mmol/L [facility] Potassium 4.5 3.3 - 5.1 mmol/L [facility] Chloride 106 96 - 108 mmol/L [facility] Carbon Dioxide 31(H) 22 - 29 mmol/L [facility] Anion Gap 10(L) 12 - 20 [facility] Urea Nitrogen (BUN) 16 9 - 16 mg/dL [facility] Creatinine, Serum 0.91 0.5 - 1.4 mg/dL [facility] Estimated Glomerular Filt Rate >60 [facility] Comment:Chronic Kidney Disea se: Estimated GFR < 60 mL/min/1.92o7Lpcmoc Kidney Disease: Estimated GFR < 15 mL/min/1.73m2 Glucose 121(H) 60 - 115 mg/dL [facility] Calcium 9.5 8.4 - 10.2 mg/dL [facility] Blood Venous blood specimen / Unknown 10/04/2025 12:16 PM EST 10/04/2025 1:23 PM EST Mariya Patel DO LAB BLOOD ORDERABLES Final R esult [facility] [address] [place] [phone] * (ABNORMAL) POCT Hgb A1c (10/04/2025 11:29 AM EST) Hemoglobin A1C 7.2(A) 4.0 - 5.7 % QC Media Lot # [id number] Lot# Expiration Date ,868,255 Blood 10/04/2025 11:2 9 AM EST Mariya Patel DO POINT OF CARE TEST ENTER/INDIGO T ORDERABLES Final Result * POCT Glucose (10/04/2025 11:29 AM EST) Pathologist [facility] Glucose Blood, POC 190 60 - 200 mg/dL QC Media Lot # [id number] Lot# Expiration Date Blood Capillary blood specimen / Unknown 10/04/2025 11:29 AM EST Mariya Patel DO POINT OF CARE TEST ENTER/INDIGO T ORDERABLES Final Result * HEPATITIS C AB W/REFL TO HCV RNA, QN, PCR (11/30/2020 8:47 AM EST) Pathologist [facility] HEPATITIS C ANTIBODY NON-REACT LAMIN NON-REACT LAMIN [facility] INDEX 0.03 <1.00 [facility] Comment: HCV antibody was non-reactive. There is no laboratory evidence of HCV infection. In most cases, no further action is required. However, if recent HCV exposure is suspected, a test for HCV RNA (test code 18451) is suggested. For additional information please refer to http://education.[employer]/faq/PJC74q7 (This link is being provided for informational/ educational purposes only.) 11/30/2020 8:47 AM EST Mariya Jimenezlizette DO HISTORICAL/NON ORDERABLE LAB S Final Result [facility] [address] * HIV 1/2 ANTIGEN/ANTIBODY,FOURTH GENERATION W/RFL (11/30/2020 8:47 AM EST) Pathologist [facility] HIV-1/2 ANTIGEN AND ANTIBODIES, 4TH GENERATION W/ REFLEX NON-REACT LAMIN NON-REACT LAMIN [facility] Comment: HIV-1 antigen and HIV-1/HIV-2 [...] purpose. For additional information please refer to http://education.[employer]centric.[employer]/faq/ILJ164 (This link is being provided for informational/ educational purposes only.) The performance of this assay has not been clinically validated in patients less than 2 years old. 11/30/2020 8:47 AM EST Mariya Patel DO LAB BLOOD ORDERABLES Final R esult [facility] [address] * Colonoscopy (08/04/2018) Colonoscopy Normal Normal Comment:Repeat [...] Patient has chronic kidney disease 10/04/2025 Insurance [facility] < [address] , [place] [address] DENTAL - [place] [address] , [place] [address] , [place] [address] Care Teams Marine Pipefitter Helper Relationship Specialty Start Date End Date Mariya Patel DO [address] [place] [address] PCP - General Family Medicine 04/21/20
--- OUTSIDE RECORDS SUMMARY | 2025-10-05 11:26 | XMS_ITS | Encounter Summary ---
Author Organization [employer] Address [address] [facility] [address] [place] [address] Care Team Providers Care Dental Assistant Name Role Phone Jorge Mariya Primary Care Provider + [phone] Encounter Details Date Type Department Care Team (Late st Contact Info) Description 09/26/2023 Abstract [facility] [address] [place], [place] [phone] Rachel Figueroa Social History Tobacco Use Types [...] documented as of this encounter Care Teams Dental Assistant Relationship Specialty Start Date End Date Mariya Patel DO [address] [place] [address] PCP - General Family Medicine 04/21/20 documented as of this encounter
--- OUTSIDE RECORDS SUMMARY | 2025-10-05 11:26 | XMS_ITS | Encounter Summary ---
Author Organization [employer] Address [address] [facility] 7t [place] [address] Care Team Providers Care Home Health Care Case Manager Name Role Phone Mariya Patel DO Primary Care Provider + [phone] Reason for Visit * Reason Onset Date Comments Chart Prep 10/01/2025 Encounter Details Date Type Department Care Team ([facility] st Contact Info) Description 10/01/2025 Telephone [facility] [address] [place] [address] Mariya Patel DO [address] [place], [place] [phone] Chart Prep Social History Tobacco Use Types [...] care gaps: A1c, Glucose, SBIRT, PHQ-9, and ABIHJIT-7 documented in this encounter Plan of Treatment [...] documented as of this encounter Care Teams Home Health Care Case Manager Relationship Specialty Start Date End Date Mariya Patel DO [address] [place] [address] PCP - General Family Medicine 04/21/20 documented as of this encounter
--- OUTSIDE RECORDS SUMMARY | 2025-10-05 11:26 | XMS_ITS | Encounter Summary ---
Author Organization [employer] Address [address] [facility] 7t [place] [address] Care Team Providers Care Brand Ambassador Promotional Model Name Role Phone Mariya Patel DO Primary Care Provider + [phone] Reason for Visit * Reason Onset Date Comments Med Refill 12/11/2023 Encounter Details Date Type Department Care Team (Late st Contact Info) Description 12/11/2023 Refill [facility] [address] [place], [place] [phone] Mariya Patel DO [address] [place], [place] [phone] Social History Tobacco Use Types Packs/Day Years [...] documented as of this encounter Care Teams Brand Ambassador Promotional Model Relationship Specialty Start Date End Date Mariya Patel DO [address] [place] [phone] PCP - General Family Medicine 04/21/20 documented as of this encounter
--- OUTSIDE RECORDS SUMMARY | 2025-10-05 11:26 | XMS_ITS | Encounter Summary ---
Author Organization [employer] Address [address] [facility] [address] [place] [address] Care Team Providers Care Rn Ortho Name Role Phone Mariya Patel DO Primary Care Provider + [phone] Encounter Details Date Type Department Care Team (Late st Contact Info) Description 12/02/2022 Orders Only [facility] [address] [place], [place] [phone] Mariya Cook LPN Social History Tobacco Use [...] 12:41 PM EDT) Creatinine, Urine 28.66 mg/dL [facility] Microalbumin Urine <5.0 mg/L [facility] Microalbum Creatinine Ratio Ur TNP ug/mg cr [facility] Comment:Unable to calculate albumin/creatinine ratio due to lowmicroalbumin or creatinine result. 05/29/2023 12:4 1 PM EDT 05/29/2023 1:14 PM EDT us Mariya Patel DO LAB URINE ORDERABLES Final R esult Performing Organization Address City/State/[facility] Co de Phone Number [facility] [address] [place] [phone] documented in this encounter Visit Diagnoses Not on filedocumented in this encounter Care Teams Rn Ortho Relationship Specialty Start Date End Date Mariya Patel DO [address] [place] [phone] PCP - General Family Medicine 04/21/20 documented as of this encounter
--- OUTSIDE RECORDS SUMMARY | 2025-10-05 11:26 | XMS_ITS | Encounter Summary ---
Author Organization [employer] Address [address] [facility] [address] [place] [address] Care Team Providers Care Clocksmith Name Role Phone Mariya Patel DO Primary Care Provider + [phone] Reason for Visit * Reason Comments Med Refill Encounter Details Date Type Department Care Team (Late st Contact Info) Description 06/21/2023 Refill [facility] [address] [place] [address] Mariya Patel DO [address] [place], [place] [phone] Seasonal allergic rhinitis, unspecified trigger Social History [...] documented as of this encounter Care Teams Clocksmith Relationship Specialty Start Date End Date Mariya Patel DO [address] [place] [address] PCP - General Family Medicine 04/21/20 documented as of this encounter
--- OUTSIDE RECORDS SUMMARY | 2025-10-05 11:26 | XMS_ITS | Encounter Summary ---
Author Organization [employer] Address [address] [facility] 7t [place] [address] Care Team Providers Care Slackline Operator Name Role Phone Mariya Patel DO Primary Care Provider + [phone] Reason for Visit * Reason Comments Med Refill Encounter Details Date Type Department Care Team (Late st Contact Info) Description 09/05/2024 Refill [facility] [address] [place], [place] [phone] Mariya Patel DO [address] [place], [place] [phone] Social History Tobacco Use Types Packs/Day Years [...] documented as of this encounter Care Teams Slackline Operator Relationship Specialty Start Date End Date Mariya Patel DO [address] [place] [phone] PCP - General Family Medicine 04/21/20 documented as of this encounter
== END 2025-10-05 09:52 | disposition home or self-care (01) ==
LOC: HO.HHCX 09:51
PROVIDERS: PCP Family Medicine; Visit Provider Family Medicine
DX: M53.3 Sacrococcygeal disorders, not elsewhere classified (principal)
CPT/HCPCS: 72100; 72220

== ENCOUNTER → 2025-10-05 10:20 | Outpatient (BNV) | payer OTHER, SELFPAY | PROVIDERS: PCP Family Medicine; Visit Provider Radiology Body Imaging | DX: M47.816 Spondylosis without myelopathy or radiculopathy, lumbar region (principal); M53.3 Sacrococcygeal disorders, not elsewhere classified | CPT/HCPCS: 72100; 72220 ==